=== PATIENT | male | born 1945 | race Caucasian/White ===

== ENCOUNTER → 2019-04-07 | Day surgery (SDC) | payer MEDICARE ==
[2019-04-06 09:37] VITALS: BMI 21.7
[~2019-04-07] MED LIST: ALPRAZolam 0.25 MG TAB PO PRN; ALPRAZolam 0.5 MG TAB PO PRN; ASPIRIN 325 MG TAB PO STA; HEPARIN SODIUM 1,000 UN/ML (10ML VL) ONE; IOPAMIDOL-370 125ML BTL INJ ONE; LIDOCAINE 1% INJ 10MG/ML (20 ML MDV) ONE; MIDAZOLAM (PF) 2 MG/2 ML VIAL IV ONE; NICOTINE 14MG/24HR PATCH TRANSDERM STA; NITROGLYCERIN SL TABS 0.4 MG TAB SUBLINGUAL PRN; RX INFO: IV CONTRAST WAS GIVEN 1 EACH MISC MISCELLANE PRN; SODIUM CHLORIDE 0.9% 1,000 ML IV SCH; SODIUM CHLORIDE 0.9% 1,000 ML in EMPTY BAG 1 BAG IV ONE; VERAPAMIL 2.5 MG/ML 2 ML AMP ONE; VERAPAMIL SYRINGE (5 MG/10 ML) INTRAARTER ONE; cloNIDine HCL 0.1 MG TAB PO STA; fentaNYL (PF) 50 MCG/ML 2 ML AMP IV ONE; fentaNYL (PF) 50 MCG/ML 2 ML AMP ONE
[2019-04-07 11:04] VITALS: RESP 18; TEMP 98
[2019-04-07 11:14] LABS: Basophils % (A) 1 %; Eosinophils # (A) 0.1 k/uL (0-0.7); Eosinophils % (A) 2 %; HCT 44.4 % (39.0-53.0); HGB 15.3 gm/dL (13.0-17.5); Lymphocytes # (A) 1.3 k/uL (1.0-4.8); Lymphocytes % (A) 15 %; MCH 32.5 pg (25.0-35.0); MCHC 34.5 g/dL (31.0-37.0); MCV 94.1 fL (80.0-100.0); Mean Platelet Volume 7.2; Monocytes # (A) 0.4 k/uL (0-1.0); Monocytes % (A) 4 %; Neutrophils # (A) 6.7 k/uL (1.3-7.7); Neutrophils % (A) 77 %; Platelet Count 245 k/uL (150-450); RBC 4.72 m/uL (4.30-5.90); RDW 13.1 % (11.5-15.5); WBC 8.7 k/uL (3.8-10.6)
[2019-04-07 11:20] LABS: Anion Gap 6 mmol/L; Blood Urea Nitrogen 7 mg/dL (9-20); Calcium 9.8 mg/dL (8.4-10.2); Carbon Dioxide 29 mmol/L (22-30); Chloride 100 mmol/L (98-107); Glucose 90 mg/dL (74-99); Potassium 4.5 mmol/L (3.5-5.1); Sodium 135 mmol/L (137-145)
[2019-04-07] MEDS: MIDAZOLAM (PF) 2 MG/2 ML VIAL IV ONE ×2 (12:31→12:37)
[2019-04-07] MEDS: fentaNYL (PF) 50 MCG/ML 2 ML AMP IV ONE ×2 (12:31→12:37)
--- NOTE | 2019-04-07 13:09 | CC ---
CARDIAC CATHETERIZATION REPORT DATE OF SERVICE: 04/07/2019 PERFORMING PHYSICIAN: Brady Mills MD, Cardiac Technician. PROCEDURE PERFORMED: 1. Selective right and left coronary angiogram. 2. Left heart catheterization. INDICATION: This is a pleasant 71-year-old gentleman with history of hypertension and dyslipidemia who was experiencing exertional dyspnea and underwent myocardial perfusion imaging stress test and that revealed apical ischemia. Because of that, heart catheterization was advised. APPROACH: Right radial artery. COMPLICATION: None. LEVEL OF SEDATION: Moderate with sedation length of 15 minutes. PROCEDURE DESCRIPTION: After obtaining an informed consent, the patient was brought to the cardiac skilled labor. The right radial artery was cannulated using micropuncture technique, the micropuncture wire passed easily then I placed a 6-Maltese sheath in the right radial artery. After that, I gave the patient 2 mg of verapamil IA and units of heparin IV. Subsequently I did selective right and left coronary angiogram using JR4 and JL3.5 catheters. Left heart catheterization was performed using 6-Maltese pigtail catheter. The procedure was completed without any complication. SELECTIVE CORONARY ANGIOGRAM: 1. The right coronary artery is a large caliber vessel and it is a dominant vessel. The proximal RCA appeared to be angiographically normal. The mid RCA has mild disease only. The RCA distally appeared to be angiographically normal. 2. The left main is angiographically normal. It bifurcates into left circumflex, ramus intermedius, and left anterior descending artery. 3. The left circumflex is a large caliber vessel. It is a nondominant vessel. The proximal circumflex appeared to be normal. The mid circumflex is normal and gives rise into first and second obtuse marginal branches both appeared to be angiographically normal and the circumflex continued after that as a moderate caliber vessel in the AV groove. 4. The ramus intermedius is a small to medium caliber vessel and seems to be normal. 5. The LAD, the proximal LAD appeared to have mild disease only. It gives rise into the first diagonal branch which seems to be normal. The mid and distal LAD appeared to be normal. HEMODYNAMICS: The left ventricular end-diastolic pressure was 12 mmHg without significant gradient across the aortic valve. CONCLUSION: 1. Mild nonobstructive coronary artery disease. POSTPROCEDURE MANAGEMENT: 1. Medical treatment. 2. Follow up with the patient. 3. Aggressive cholesterol control. MMODL / IJN: [id number] /
[2019-04-07 16:09] VITALS: BP 161/86; PULSE 65
--- NOTE | 2019-04-07 18:03 | LTR ---
April 07, 2019 To: Dr. Irvin Soto Re: Jesse Vicente ([id number]) Dear Dr. Soto, Mr. Jesse Vicente underwent today a heart catheterization which revealed mild nonobstructive coronary artery disease. I advised maximized medical treatment, including aggressive cholesterol control and blood pressure control. Thank you for allowing us to participate in her care. Please do not hesitate to call if you have any question or concerns. Sincerely, MD ORTIZ Moyer / AQUILINON: [id number] /
== END ==
LOC: CATHCVL 10:15
PROVIDERS: ATTEND Internal Medicine Interventional Cardiology
DX: I25.110 Atherosclerotic heart disease of native coronary artery with unstable angina pectoris (principal); I10 Essential (primary) hypertension; I49.3 Ventricular premature depolarization; F17.200 Nicotine dependence, unspecified, uncomplicated; Z82.49 Family history of ischemic heart disease and other diseases of the circulatory system; Z79.899 Other long term (current) drug therapy
CPT/HCPCS: 93458; 80048; 85025; C1769; C1894; S4990; J3010; J1644; Q9967; J2250

== ENCOUNTER → 2024-09-12 | Day surgery (SDC) | payer MEDICARE ==
[2024-09-08 09:34] VITALS: BMI 23.7
[~2024-09-12] MED LIST changes: -ALPRAZolam 0.25 MG TAB PO PRN; -ALPRAZolam 0.5 MG TAB PO PRN; -ASPIRIN 325 MG TAB PO STA; -HEPARIN SODIUM 1,000 UN/ML (10ML VL) ONE; -IOPAMIDOL-370 125ML BTL INJ ONE; -MIDAZOLAM (PF) 2 MG/2 ML VIAL IV ONE; -NICOTINE 14MG/24HR PATCH TRANSDERM STA; -NITROGLYCERIN SL TABS 0.4 MG TAB SUBLINGUAL PRN; +PROPOFOL 10 MG/ML 20 ML VIAL IV ONE; -RX INFO: IV CONTRAST WAS GIVEN 1 EACH MISC MISCELLANE PRN; -SODIUM CHLORIDE 0.9% 1,000 ML IV SCH; -SODIUM CHLORIDE 0.9% 1,000 ML in EMPTY BAG 1 BAG IV ONE; +SODIUM CHLORIDE 0.9% 500 ML 500 ML IV SCH; -VERAPAMIL 2.5 MG/ML 2 ML AMP ONE; -VERAPAMIL SYRINGE (5 MG/10 ML) INTRAARTER ONE; -cloNIDine HCL 0.1 MG TAB PO STA; -fentaNYL (PF) 50 MCG/ML 2 ML AMP IV ONE; -fentaNYL (PF) 50 MCG/ML 2 ML AMP ONE
[2024-09-12] MEDS: IV FLUID CONTINUATION 500 ML IV ONE (06:41)
[2024-09-12 06:54] VITALS: TEMP 97.5
[2024-09-12 07:36] LABS: African American GFR (CKD) >90 (>60 ml/min/1.73 sqM); Anion Gap 5 mmol/L; Blood Urea Nitrogen 15 mg/dL (9-20); Calcium 9.9 mg/dL (8.4-10.2); Carbon Dioxide 31 mmol/L (22-30); Chloride 102 mmol/L (98-107); Glucose 82 mg/dL (74-99); Non-African American GFR(CKD) >90 (>60 ml/min/1.73 sqM); Potassium 4.5 mmol/L (3.5-5.1); Sodium 138 mmol/L (137-145)
[2024-09-12] MEDS: IV FLUID CONTINUATION 1,000 ML IV ONE (07:37)
[2024-09-12 09:03] VITALS: BP 151/82; PULSE 52; RESP 14
--- NOTE | 2024-09-12 09:29 | ECHOT ---
TRANSESOPHAGEAL ECHOCARDIOGRAM INDICATION: To rule out intracardiac thrombus prior to cardioversion. PROCEDURE NOTE: After obtaining informed consent, transesophageal echocardiogram was performed in left lateral position using an Omniplane probe. Local and IV sedation were obtained by the cloth finishing range back tender. The patient tolerated the procedure well without any obvious immediate complications. FINDINGS: 1. There is no intracardiac thrombus within the left atrial appendage, left atrium, right atrium, right ventricle, or left ventricle. 2. Left ventricle appears mildly enlarged, shows diffuse global hypokinesis with mild LV systolic dysfunction with an ejection fraction of 45%. There is mild to moderate central mitral regurgitation noted. Aortic valve is free of stenosis or regurgitation. 3. Aortic root measures within normal limits. Tricuspid valve shows mild tricuspid regurgitation. There is no evidence of [id number] shunt by color-flow Doppler or [id number] shunt by agitated saline contrast study. CONCLUSIONS: 1. No intracardiac thrombus. 2. Mild LV dysfunction. 3. Mild to moderate mitral regurgitation. PLAN: The patient will proceed with cardioversion. MMODL / IJN: [id number] /
--- NOTE | 2024-09-12 12:47 | PCN ---
PROCEDURE NOTE PROCEDURE: Cardioversion. INDICATION: Persistent atrial fibrillation. PROCEDURE NOTE: After obtaining informed consent, electrical cardioversion was performed using 120 joules of synchronized DC current. The patient converted to sinus rhythm following a single shock. The patient is adequately anticoagulated with Eliquis and thrombus was ruled out for STEPHANIE. He will continue with the Eliquis and we will decrease the dose of metoprolol on discharge. MMMIGUELITO / AQUILINON: [id number] /
== END ==
LOC: OR 06:15
PROVIDERS: ATTEND Internal Medicine Cardiovascular Disease
CPT/HCPCS: 80048; 92960; 93312; 93320; 93325

== ENCOUNTER 2025-02-07 09:31 | Inpatient (IN) | payer MEDICARE ==
--- NOTE | 2025-02-07 10:10 | ED ---
General Adult HPI - General Chief complaint: Extremity Injury, Lower Stated complaint: R Hip fracture Time Seen by Provider: 02/07/25 09:45 Source: patient, EMS, RN notes reviewed, old records reviewed Mode of arrival: EMS Limitations: no limitations - History of Present Illness Initial comments: This is a 79-year-old male who presents to the emergency department from [facility] where he was diagnosed with a right hip fracture. Patient states he got up this morning and put his flip-flops on and tripped and fell and broke his hip. Patient denies any other complaints at this time. Patient denies any his head or neck. Patient denies any numbness weakness. Patient denies any other problems. - Related Data Home Medications Medication Instructions Recorded Confirmed Apixaban [Eliquis] 5 mg PO BID 09/08/24 09/08/24 Atorvastatin [Lipitor] 20 mg PO QAM 09/08/24 09/08/24 FLUoxetine HCL 20 mg PO QAM 09/08/24 09/08/24 Metoprolol Tartrate [Lopressor] 50 mg PO BID 09/08/24 09/08/24 lisinopriL [Zestril] 10 mg PO QAM 09/08/24 09/08/24 Allergies Allergy/AdvReac Type Severity Reaction Status Date / Time injection from stress test AdvReac Nausea & Uncoded 09/08/24 09:15 Vomiting Review of Systems ROS Statement: Those systems with pertinent positive or pertinent negative responses have been documented in the HPI. ROS Other: All systems not noted in ROS Statement are negative. Past Medical History Past Medical History: CVA/TIA, Hearing Disorder / Deafness, Hypertension Additional Past Medical History / Comment(s): Hard of hearing left ear. History of Any Multi-Drug Resistant Organisms: None Reported Past Surgical History: Back Surgery, Heart Catheterization Past Anesthesia/Blood Transfusion Reactions: No Reported Reaction Past Psychological History: Anxiety, Depression Smoking Status: Current every day smoker - Past Family History Sister(s) Family Medical History: Cancer General Exam - General Exam Comments Initial Comments: GENERAL: Patient is well-developed and well-nourished. Patient is nontoxic and well- hydrated and is in mild distress. ENT: Neck is soft and supple. No significant lymphadenopathy is noted. Oropharynx is clear. Moist mucous membranes. Neck has full range of motion without eliciting any pain. EYES: The sclera were anicteric and conjunctiva were pink and moist. Extraocular movements were intact and pupils were equal round and reactive to light. Eyelids were unremarkable. PULMONARY: Unlabored respirations. Good breath sounds bilaterally. No audible rales rhonchi or wheezing was noted. CARDIOVASCULAR: There is a regular rate and rhythm without any murmurs gallops or rubs. ABDOMEN: Soft and nontender with normal bowel sounds. No palpable organomegaly was noted. There is no palpable pulsatile mass. SKIN: Skin is clear with no lesions or rashes and otherwise unremarkable. NEUROLOGIC: Patient is alert and oriented x3. Cranial nerves II through XII are grossly intact. Motor and sensory are also intact. Normal speech, volume and content. Symmetrical smile. MUSCULOSKELETAL: Patient's right leg is externally rotated and painful with any motion LYMPHATICS: No significant lymphadenopathy is noted PSYCHIATRIC: Normal psychiatric evaluation. Limitations: no limitations Course Vital Signs 02/07/25 09:38 Temperature 98.6 F Pulse Rate 54 L Respiratory 16 Rate Blood Pressure 163/80 O2 Sat by Pulse 98 Oximetry Medical Decision Making - Medical Decision Making EKG is interpreted by myself but EKG shows sinus bradycardia 56 bpm FL was 225 QRS is 153 QT interval 470 QTc is 460. Patient EKG shows a right bundle branch block. Was pt. sent in by a medical professional or institution ([facility], [facility], urgent care, hospital, or fpc...) When possible be specific @ -No Did you speak to anyone other than the patient for history (EMS, parent, family, police, friend...)? What history was obtained from this source @ -No Did you review nursing and triage notes (agree or disagree)? Why? @ -I reviewed and agree with nursing and triage notes Were old charts reviewed (outside hosp., previous admission, EMS record, old EKG, old radiological studies, urgent care reports/EKG's, fpc records)? Report findings @ -No old charts were reviewed Differential Diagnosis? @ -Differential Musculoskeletal Muscular strain, contusion, ligament sprain, fracture, arthritis, septic arthritis, bursitis, cellulitis, muscle spasm, nerve compression, DVT, arterial occlusion, herpes zoster, electrolyte abnormality, tumor.... This is not meant to be in all inclusive list EKG interpreted by me (3pts min.). @ -As above X-rays interpreted by me (1pt min.). @ -None done CT interpreted by me (1pt min.). @ -None done U/S interpreted by me (1pt. min.). @ -None done What testing was considered but not performed or refused? (CT, X-rays, U/S, labs)? Why? @ -None What meds were considered but not given or refused? Why? @ -None Did you discuss the management of the patient with other professionals (professionals i.e. , PA, [facility], lab, RT, psych nurse, aids social worker, core composer feeder, teacher, staff weapons officer, case management social worker)? Give summary @ -I spoke with Dr. Gil he agreed to admit the patient Was smoking cessation discussed for >3mins.? @ -No Was critical care preformed (if so, how long)? @ -No Were there social determinants of health that impacted care today? How? (Homelessness, low income, unemployed, alcoholism, drug addiction, transportation, low edu. Level, literacy, decrease access to med. care, long term, rehab)? @ -No Was there de-escalation of care discussed even if they declined (Discuss DNR or withdrawal of care, Hospice)? DNR status @ -No What co-morbidities impacted this encounter? (DM, HTN, Smoking, COPD, CAD, Cancer, CVA, ARF, Chemo, Hep., AIDS, mental health diagnosis, sleep apnea, morbid obesity)? @ -None Was patient admitted / discharged? Hospital course, mention meds given and route, prescriptions, significant lab abnormalities, going to OR and other pertinent info. @ -Patient came with lab work I did do an EKG. Patient's x-rays were reviewed by myself as an intertrochanteric left hip fracture spoke with Ortho they agreed to admit the patient. I admitted the patient and I consulted [facility] for clearance Undiagnosed new problem with uncertain prognosis? @ -No Drug Therapy requiring intensive monitoring for toxicity (Heparin, Nitro, Insulin, Cardizem)? @ -No Were any procedures done? @ -No Diagnosis/symptom? @ -Right intertrochanteric hip fracture Acute, or Chronic, or Acute on Chronic? @ -Acute Uncomplicated (without systemic symptoms) or Complicated (systemic symptoms)? @ -Complicated Side effects of treatment? @ -No Exacerbation, Progression, or Severe Exacerbation? @ -No Poses a threat to life or bodily function? How? (Chest pain, [place], [place], pneumonia, PE, COPD, DKA, ARF, appy, cholecystitis, CVA, Diverticulitis, Homicidal, Suicidal, threat to staff... and all critical care pts) @ -No Disposition Clinical Impression: Intertrochanteric fracture of right hip Disposition: ADMITTED IP TO THIS [facility] Referrals: Emery Hurley MD [Primary Care Provider] - 1-2 days Time of Disposition: 11:08
[2025-02-07] MEDS: HYDROmorphone 0.5 MG/0.5 ML SYRINGE IVP STA (11:20)
[2025-02-07] MEDS: SODIUM CHLORIDE 0.9% 1,000 ML IV ONE (11:27)
[2025-02-07] MEDS: HYDROmorphone 0.5 MG/0.5 ML SYRINGE IVP PRN (12:20)
[2025-02-07] MEDS ORDERED: ACETAMINOPHEN TAB 325 MG TAB PO PRN (14:50)
[2025-02-07] MEDS ORDERED: NA PHOS,M-B/NA PHOS,DI-BA 133 ML ENEMA RECTAL PRN (14:50)
[2025-02-07] MEDS ORDERED: MAGNESIUM HYDROXIDE 2,400 MG/30 ML CUP PO PRN (14:50)
[2025-02-07] MEDS ORDERED: traMADol 50 MG TAB PO PRN (14:50)
[2025-02-07] MEDS ORDERED: bisacodyL 10 MG SUPP RECTAL PRN (14:50)
[2025-02-07] MEDS ORDERED: HYDROcodone/APAP 5-325MG 1 EACH TAB PO PRN (14:50)
[2025-02-07] MEDS ORDERED: HYDROmorphone 0.5 MG/0.5 ML SYRINGE IVP PRN ×2 (14:50)
[2025-02-07] MEDS ORDERED: NALOXONE 0.4 MG/ML 1 ML VIAL IV PRN (14:50)
[2025-02-07] MEDS: HYDROcodone/APAP 10-325MG 1 EACH TAB PO PRN (15:11)
[2025-02-07] MEDS ORDERED: LORazepam 1 MG/0.5 ML VIAL IV PRN ×2 (15:52)
[2025-02-07] MEDS: LORazepam 0.5 MG TAB PO PRN (16:15)
[2025-02-07] MEDS: LACTATED RINGERS 1,000 ML IV SCH (17:30)
--- NOTE | 2025-02-07 17:31 | XR ---
EXAMINATION TYPE: XR Hip Complete RT DATE OF EXAM: 02/07/2025 5:22 PM COMPARISON: None CLINICAL INDICATION: Male, 79 years old with history of right IT femur fracture; PHH, pain TECHNIQUE: XR Hip Complete RT; Frontal and lateral views FINDINGS/IMPRESSION: Proximal right femur intertrochanteric fracture with varus deformity and a rotational component. [facility], , 02/07/2025 5:29 PM
--- NOTE | 2025-02-07 17:34 | XR ---
EXAMINATION TYPE: XR chest 1V DATE OF EXAM: 02/07/2025 5:22 PM COMPARISON: Chest radiographs from CLINICAL INDICATION: Male, 79 years old with history of surgery clearance; TECHNIQUE: XR chest 1V Frontal view of the chest. FINDINGS: Lungs/Pleura: There is no evidence of pleural effusion, focal consolidation, or pneumothorax. Pulmonary vascularity: Unremarkable. Heart/mediastinum: Cardiomediastinal silhouette is unremarkable. Musculoskeletal: No acute osseous pathology. Other findings: None IMPRESSION: Mild pulmonary edema versus low lung volumes.. [facility], , 02/07/2025 5:32 PM
[2025-02-07] MEDS: SENNOSIDES-DOCUSATE SODIUM 1 EACH TAB PO SCH (22:13)
[2025-02-08] MEDS: PANTOPRAZOLE 40 MG TABLET PO SCH (08:15)
[2025-02-08] MEDS: FLUoxetine HCL 20 MG CAP PO SCH (08:15)
[2025-02-08] MEDS: ATORVASTATIN 20 MG TAB PO SCH (08:15)
[2025-02-08] MEDS: METOPROLOL TARTRATE 25 MG TAB PO SCH (08:15)
[2025-02-08] MEDS: MULTIVITAMINS, THERA 1 EACH TAB PO SCH (08:16)
[2025-02-08 10:13] LABS: HCT 34.1 % (39.6-50.0); HGB 11.7 g/dL (13.0-17.0); MCH 32.1 pg (27.0-32.0); MCHC 34.3 g/dL (32.0-37.0); MCV 93.7 FL (80.0-97.0); Mean Platelet Volume 11.8 FL (9.5-12.2); NRBC Per 100 WBC 0 X 10*3/uL (0.00-0.01); Platelet Count 190 X 10*3/uL (140-440); RBC 3.64 X 10*6/uL (4.40-5.60); RDW 13.2 % (11.5-14.5); WBC 13.25 X 10*3/uL (4.50-10.00)
[2025-02-08 10:46] LABS: Basophils # (A) 0.04 X 10*3/uL (0.00-0.10); Basophils % (A) 0.3 %; Eosinophils # (A) 0.01 X 10*3/uL (0.04-0.35); Eosinophils % (A) 0.1 %; Lymphocytes # (A) 1.69 X 10*3/uL (0.90-5.00); Lymphocytes % (A) 12.8 %; Monocytes # (A) 1.58 X 10*3/uL (0.20-1.00); Monocytes % (A) 11.9 %; Neutrophils # (A) 9.87 X 10*3/uL (1.80-7.70); Neutrophils % (A) 74.4 %; RBC Morphology Normal (Normal)
[2025-02-08] MEDS: hydrALAZINE HCL 20 MG/ML 1 ML VIAL IVP STA (10:46)
[2025-02-08] MEDS: LORazepam 1 MG/0.5 ML VIAL IV PRN (12:40)
--- NOTE | 2025-02-08 12:58 | P.CONS ---
History of Present Illness - Reason for Consult Consult date: 02/08/25 Medical management, status post fall with right hip fracture - History of Present Illness This is a 79-year-old male who presented to the emergency department from [facility] after a mechanical fall and noted to have a proximal right hip fracture. Patient follows with Dr. Hurley and sees the nurse practitioner Justina Vargas outpatient with past medical history of Atrial fibrillation, recent CVA, deafness, hypertension, anxiety with depression, continued ongoing nicotine dependence, daily drinking approximately 2-3 beers daily and fireball shots. Patient reports he fell and was unable to get up and his son lives with him and found him and called EMS for ER transport. Patient was at [facility] and sent here for further orthopedic evaluation. Patient is medically stable and given his age and comorbidities would deem him moderate risk although was ambulatory and independent prior to this and would proceed with surgical intervention. REVIEW OF SYSTEMS: CONSTITUTIONAL: No fever, no malaise, no fatigue. HEENT: No recent visual problems or hearing problems. Denied any sore throat. CARDIOVASCULAR: No chest pain, orthopnea, PND, no palpitations, no syncope. PULMONARY: No shortness of breath, no cough, no hemoptysis. GASTROINTESTINAL: No diarrhea, no nausea, no vomiting, no abdominal pain. NEUROLOGICAL: No headaches, no weakness, no numbness. HEMATOLOGICAL: Denies any bleeding or petechiae. GENITOURINARY: Denies any burning micturition, frequency, or urgency. MUSCULOSKELETAL/RHEUMATOLOGICAL: Right hip pain ENDOCRINE: Denies any polyuria or polydipsia. The rest of the 14-point review of systems is negative. PHYSICAL EXAMINATION: GENERAL: The patient is alert and oriented x3, not in any acute distress. Well developed, well nourished. HEENT: Pupils are round and equally reacting to light. EOMI. No scleral icterus. No conjunctival pallor. Normocephalic, atraumatic. No pharyngeal erythema. No thyromegaly. CARDIOVASCULAR: S1 and S2 muffled PULMONARY: Chest is clear to auscultation, no wheezing or crackles. ABDOMEN: Soft, nontender, nondistended, normoactive bowel sounds. No palpable organomegaly. MUSCULOSKELETAL: No joint swelling or deformity. EXTREMITIES: No cyanosis, clubbing, or pedal edema. Right hip externally rotated and shortened NEUROLOGICAL: Gross neurological examination did not reveal any focal deficits. Diffusely weak SKIN: No rashes. Assessment: Mechanical fall with right hip pain noted to have right proximal hip fracture History of atrial fibrillation History of recent CVA History of hypertension Continued ongoing nicotine abuse Daily EtOH abuse, family reports 2-3 beers daily and a fireball shot GI prophylaxis DVT prophylaxis Full code Plan: Patient is admitted under orthopedics with medicine on consult. Given patient's history of A-fib, recent CVA and hypertension with continued ongoing nicotine abuse and alcohol abuse, would deem the patient moderate risk for surgical intervention although somewhat noncompliant with medications and continued nicotine and alcohol. Risk versus benefits explained and patient is willing to proceed with surgical intervention as patient was independent and ambulatory prior to this Home medications reviewed and resumed as appropriate Thank you kindly for this consultation. We will continue to follow with orthopedics during hospitalization. The impression and plan of care has been dictated by Grecia Linares, Nurse Practitioner as directed. Dr. Kasey MD I have performed a history and examination and MDM of this patient, discussed the same with the dictator, and agree with the dictator's assessment and plan as written ,documented as a scribe. Based on total visit time, I have performed more than 50% of the visit. Past Medical History Past Medical History: Atrial Fibrillation, CVA/TIA, Hearing Disorder / Deafness, Hypertension Additional Past Medical History / Comment(s): Hard of hearing left ear. History of Any Multi-Drug Resistant Organisms: None Reported Past Surgical History: Back Surgery, Heart Catheterization Past Anesthesia/Blood Transfusion Reactions: No Reported Reaction Past Psychological History: Anxiety, Depression Smoking Status: Current every day smoker Past Alcohol Use History: Daily Additional Past Alcohol Use History / Comment(s): Smokes 1 pack every 2 days. 2- 3 beers daily and fireball Past Drug Use History: None Reported - Past Family History Sister(s) Family Medical History: Cancer Medications and Allergies Home Medications Medication Instructions Recorded Confirmed Type Atorvastatin [Lipitor] 20 mg PO DAILY 09/08/24 02/07/25 History FLUoxetine HCL 20 mg PO DAILY 09/08/24 02/07/25 History Aspirin EC [Ecotrin Low Dose] 81 mg PO DAILY 02/07/25 02/07/25 History Dabigatran [Pradaxa] 150 mg PO BID 02/07/25 02/07/25 History Metoprolol Tartrate [Lopressor] 25 mg PO BID 02/07/25 02/07/25 History Pantoprazole Sodium [Protonix] 40 mg PO DAILY 02/07/25 02/07/25 History lisinopriL [Zestril] 20 mg PO DAILY 02/07/25 02/07/25 History Allergies Allergy/AdvReac Type Severity Reaction Status Date / Time injection from stress test AdvReac Nausea & Uncoded 02/07/25 11:52 Vomiting Physical Exam Vitals: Vital Signs Temp Pulse Pulse Resp BP BP Pulse Ox 02/08/25 07:28 98.4 F 69 18 193/85 96 02/08/25 01:34 98.4 F 73 20 178/81 95 02/07/25 18:53 98.3 F 76 20 179/76 97 02/07/25 15:07 98.4 F 64 18 196/82 97 02/07/25 14:31 59 L 18 180/81 98 02/07/25 13:30 99.3 F 67 20 171/90 96 02/07/25 12:22 59 L 18 164/79 96 Intake and Output 02/07/25 02/08/25 02/08/25 22:59 06:59 14:59 Intake Total 200 Output Total 300 450 Balance -100 -450 Intake: Oral 200 Output: Urine 300 450 Other: Voiding Method Indwelling Catheter # Voids 1 Results CBC & Chem 7: 02/08/25 07:35 Labs: Abnormal Lab Results - Last 24 Hours (Table) 02/08/25 Range/Units 07:35 WBC 13.25 H (4.50-10.00) X 10*3/uL RBC 3.64 L (4.40-5.60) X 10*6/uL Hgb 11.7 L (13.0-17.0) g/dL Hct 34.1 L (39.6-50.0) % MCH 32.1 H (27.0-32.0) pg
--- NOTE | 2025-02-08 15:49 | P.HPOR ---
History of Present Illness H&P Date: 02/08/25 Chief Complaint: Right hip Fracture Patient is a 79-year-old male seen at bedside today. He was admitted through the ED yesterday for a right hip fracture. He was transferred from [facility] where he was diagnosed with a right hip fracture. Patient states he got up yesterday morning and put his flip-flops on and tripped and fell and broke his hip. Patient denies any other complaints at this time. Patient denies injury to his head or neck. Patient denies any numbness weakness. Patient denies any other problems. Review of Systems All systems: negative Constitutional: Denies chills, Denies fever Eyes: denies blurred vision, denies pain Ears, nose, mouth and throat: Denies headache, Denies sore throat Cardiovascular: Denies chest pain, Denies shortness of breath Respiratory: Denies cough Gastrointestinal: Denies abdominal pain, Denies diarrhea, Denies nausea, Denies vomiting Musculoskeletal: Denies myalgias Integumentary: Denies pruritus, Denies rash Neurological: Denies numbness, Denies weakness Psychiatric: Denies anxiety, Denies depression Endocrine: Denies fatigue, Denies weight change Past Medical History Past Medical History: Atrial Fibrillation, CVA/TIA, Hearing Disorder / Deafness, Hypertension Additional Past Medical History / Comment(s): Hard of hearing left ear. History of Any Multi-Drug Resistant Organisms: None Reported Past Surgical History: Back Surgery, Heart Catheterization Past Anesthesia/Blood Transfusion Reactions: No Reported Reaction Past Psychological History: Anxiety, Depression Smoking Status: Current every day smoker Past Alcohol Use History: Daily Additional Past Alcohol Use History / Comment(s): Smokes 1 pack every 2 days. 2- 3 beers daily and fireball Past Drug Use History: None Reported - Past Family History Sister(s) Family Medical History: Cancer Medications and Allergies Home Medications Medication Instructions Recorded Confirmed Type Atorvastatin [Lipitor] 20 mg PO DAILY 09/08/24 02/07/25 History FLUoxetine HCL 20 mg PO DAILY 09/08/24 02/07/25 History Aspirin EC [Ecotrin Low Dose] 81 mg PO DAILY 02/07/25 02/07/25 History Dabigatran [Pradaxa] 150 mg PO BID 02/07/25 02/07/25 History Metoprolol Tartrate [Lopressor] 25 mg PO BID 02/07/25 02/07/25 History Pantoprazole Sodium [Protonix] 40 mg PO DAILY 02/07/25 02/07/25 History lisinopriL [Zestril] 20 mg PO DAILY 02/07/25 02/07/25 History Allergies Allergy/AdvReac Type Severity Reaction Status Date / Time injection from stress test AdvReac Nausea & Uncoded 02/07/25 11:52 Vomiting Physical Examination Inspection of the lower extremities shows a shortened externally rotated right lower extremity. There are no wounds, erythema or ecchymoses. The knee is nontender without effusion. She has painless range of motion of the knee, ankle foot and toes. Range of motion of the right hip is not tested due to fracture. Neurovascular status is intact throughout the lower extremity with motor and sensation fully intact. Calf is soft and nontender. 2+ dorsalis pedis pulse a nd less than 2 second cap refill is present. Results Right IT femur fracture - Labs Labs: Abnormal Lab Results - Last 24 Hours (Table) 02/08/25 Range/Units 07:35 WBC 13.25 H (4.50-10.00) X 10*3/uL RBC 3.64 L (4.40-5.60) X 10*6/uL Hgb 11.7 L (13.0-17.0) g/dL Hct 34.1 L (39.6-50.0) % MCH 32.1 H (27.0-32.0) pg Immature Gran # 0.06 H (0.00-0.04) X 10*3/uL Neutrophils # 9.87 H (1.80-7.70) X 10*3/uL Monocytes # 1.58 H (0.20-1.00) X 10*3/uL Eosinophils # 0.01 L (0.04-0.35) X 10*3/uL H & H 02/08/25 Range/Units 07:35 Hgb 11.7 L (13.0-17.0) g/dL Hct 34.1 L (39.6-50.0) % Result Diagrams: 02/08/25 07:35 Assessment and Plan (1) Intertrochanteric fracture of right hip Narrative/Plan: Plan is to proceed with surgical intervention including Gamma Nail-IM hip screw for his right IT femur fracture tomorrow morning. He is NPO after MN. Procedure is boarded. Continue pain management, medical management, DVT prophylaxis. He would benefit from placement post op. Current Visit: Yes Status: Acute Priority: Medium Code(s): S72.141A - DISPLACED INTERTROCHANTERIC FRACTURE OF RIGHT FEMUR, INIT SNOMED Code(s): 201864530 Time with Patient: Less than 30
[2025-02-08] MEDS: hydrALAZINE HCL 20 MG/ML 1 ML VIAL IVP PRN (21:01)
[2025-02-09 08:48] LABS: ALT 14 U/L (10-49); AST 35 U/L (14-35); Albumin 3.7 g/dL (3.8-4.9); Albumin/Globulin Ratio 1.85 Ratio (1.60-3.17); Alkaline Phosphatase 73 U/L (41-126); Blood Urea Nitrogen 14.3 mg/dL (9.0-27.0); Calcium 9.4 mg/dL (8.7-10.3); Carbon Dioxide 21.2 mmol/L (21.6-31.8); Chloride 104 mmol/L (96-109); Glucose 102 mg/dL (70-110); Magnesium 1.7 mg/dL (1.5-2.4); Potassium 3.6 mmol/L (3.5-5.5); Sodium 138 mmol/L (135-145); Total Bilirubin 1.4 mg/dL (0.3-1.2); Total Protein 5.7 g/dL (6.2-8.2)
[2025-02-09] MEDS ORDERED: TRANEXAMIC 1,000 MG/100ML-NACL 1,000 MG in SALINE 1 100ML.BAG IVPB PRN (09:03)
[2025-02-09] MEDS: IV FLUID CONTINUATION 1,000 ML IV ONE ×2 (09:05→12:04)
[2025-02-09 09:12] LABS: Basophils # (A) 0.05 X 10*3/uL (0.00-0.10); Basophils % (A) 0.3 %; Eosinophils # (A) 0.05 X 10*3/uL (0.04-0.35); Eosinophils % (A) 0.3 %; HCT 35.8 % (39.6-50.0); HGB 11.9 g/dL (13.0-17.0); Lymphocytes # (A) 1.63 X 10*3/uL (0.90-5.00); Lymphocytes % (A) 8.8 %; MCH 31.4 pg (27.0-32.0); MCHC 33.2 g/dL (32.0-37.0); MCV 94.5 FL (80.0-97.0); Mean Platelet Volume 12.4 FL (9.5-12.2); Monocytes # (A) 2.29 X 10*3/uL (0.20-1.00); Monocytes % (A) 12.4 %; NRBC Per 100 WBC 0 X 10*3/uL (0.00-0.01); Neutrophils # (A) 14.37 X 10*3/uL (1.80-7.70); Neutrophils % (A) 77.5 %; Platelet Count 209 X 10*3/uL (140-440); RBC 3.79 X 10*6/uL (4.40-5.60); RDW 13.3 % (11.5-14.5); WBC 18.52 X 10*3/uL (4.50-10.00)
[2025-02-09] MEDS: ONDANSETRON 4 MG/2 ML VIAL IVP PRN (09:23)
[2025-02-09] MEDS ORDERED: PROPOFOL 10 MG/ML 20 ML VIAL IV ONE (09:47)
[2025-02-09] MEDS ORDERED: TRANEXAMIC 1,000 MG/100ML-NACL PREMIX BAG ONE (09:47)
[2025-02-09] MEDS ORDERED: PHENYLEPHRINE-0.9% NACL SYG 1,000 MCG/10 ML SYRINGE ONE (09:47)
[2025-02-09] MEDS ORDERED: LIDOCAINE 1% INJ 10MG/ML (20 ML MDV) ONE (09:47)
[2025-02-09] MEDS ORDERED: GLYCOPYRROLATE 0.2 MG/ML 2 ML VIAL ONE (09:47)
[2025-02-09] MEDS ORDERED: SUCCINYLCHOLINE CHLORIDE 200 MG/10 ML VIAL IV ONE (09:47)
[2025-02-09] MEDS ORDERED: ROCURONIUM 10 MG/ML (5 ML VIAL) IV ONE (09:47)
[2025-02-09] MEDS ORDERED: ePHEDrine 50 MG/ML 1 ML VIAL ONE (09:47)
[2025-02-09] MEDS ORDERED: MIDAZOLAM 2 MG/2 ML VIAL ONE (09:47)
[2025-02-09] MEDS ORDERED: NEOSTIGMINE 1 MG/ML 10 ML VIAL ONE (09:47)
[2025-02-09] MEDS ORDERED: fentaNYL (PF) 50 MCG/ML 2 ML AMP ONE (09:47)
[2025-02-09] MEDS ORDERED: QUEtiapine 25 MG TAB PO PRN (10:12)
[2025-02-09] MEDS: LACTATED RINGERS 1,000 ML IV ONE (10:51)
--- NOTE | 2025-02-09 11:14 | FL ---
EXAMINATION TYPE: FL guidance operating room, XR Hip Complete RT DATE OF EXAM: 02/09/2025 11:04 AM COMPARISON: Pre Operative Images if available both CT/MRI or plain film CLINICAL INDICATION: Male, 79 years old with history of IT Nail-Rt Hip; TECHNIQUE: FL guidance operating room, XR Hip Complete RT, multiple fluoroscopic images provided for procedure. DAP: 9.1560 mGym2 Gycm2 uGym2 cGycm2 or equivalent. FINDINGS: Fluoroscopic images during internal fixation demonstrate hardware in appropriate position. Hardware a ppears intact. No immediate complication identified. IMPRESSION: 1. No evidence for intraoperative complication. 2. Please see the operative/procedural note for further details. [facility], , 02/09/2025 11:11 AM
--- NOTE | 2025-02-09 12:12 | OP ---
OPERATIVE REPORT DATE OF SERVICE : 02/09/2025 PREOPERATIVE DIAGNOSIS: Right displaced intertrochanteric hip fracture. POSTOPERATIVE DIAGNOSIS: Right displaced intertrochanteric hip fracture. PROCEDURE PERFORMED: Right intramedullary hip screw fixation for right intertrochanteric hip fracture. ANESTHESIA: General endotracheal. ESTIMATED BLOOD LOSS: 50 mL. TOURNIQUET: None. DRAINS: None. COMPLICATIONS: None apparent. DISPOSITION: Postanesthesia care unit. INDICATIONS: Jesse is a very pleasant 79-year-old gentleman, who slipped on the stairs at home, injuring his right hip. He was first seen in [facility] ER and then was transferred to [facility] with a right intertrochanteric hip fracture. He is admitted to my service. The Internal Medicine Service saw him and cleared him for surgery. He is an independent ambulator at home. Recommendation was for an intramedullary hip screw fixation for his intertrochanteric hip fracture. The risks of procedure were discussed with him in detail. These risks included, but were not limited to risk of infection, nerve damage, bleeding, pain, failure of the fracture to heal and failure of the fixation. There was also a small risk of deep vein thrombosis, which could lead to fatal pulmonary embolism. All of his questions with regard to the risks of procedure were answered to his satisfaction. An appropriate informed consent was obtained. DESCRIPTION OF PROCEDURE: The patient was identified in the preoperative holding area. The surgical site was marked by both the patient and myself. He was then given 2 g of Ancef IV for prophylactic purposes. He was then transported to the operative suite. He was placed supine on the operating room table. General anesthetic was administered and dosed per the Anesthesia Department without apparent complication. The patient was then placed onto the fracture table, well-padded in preparation for surgery. Fluoroscopy was brought in. The fracture was reduced with traction and rotation. When I was happy with the reduction, we proceeded. The surgical site was then prepped and draped in usual sterile fashion. Standard surgical pause was undertaken to ensure that we were operating the correct site and that appropriate preoperative antibiotics had been given. All staff in room were in agreement, and we proceeded. Fluoroscopy was brought in. The tip of the greater trochanter was identified. An approximate 3 cm incision starting at the tip of the greater trochanter and extending proximally in line with the shaft of the femur was then made with a 10-blade scalpel. Dissection was carried down sharply to the tensor fascia. The tensor fascia was then incised in line with the incision. The curved awl was then utilized to find the appropriate starting point for the threaded guide pin. This was just on the medial aspect of the greater trochanter. The threaded pin was then advanced down the center of the femoral shaft. Again, this placement was confirmed with fluoroscopic imaging. I then used a starting reamer to gain access to the proximal femur. The starting reamer was advanced under fluoroscopic guidance just to the superior aspect of the lesser trochanter. The threaded guide pin was removed. The ball-tipped guidewire was then advanced down to the center of the femur. Again intramedullary placement was confirmed with fluoroscopic imaging. I then proceeded to ream the femoral shaft starting with a 9 mm reamer and incrementally increasing up to a 12.5 mm reamer to except the gamma nail. I then had the [employer] hospital sales representative open an 11 mm x 170 mm x 125 degree gamma nail. This was placed on the portfolio assistant on the back table. The holes were checked to ensure that it was appropriately placed on the portfolio assistant. The gamma nail was then inserted over the ball-tipped guidewire. It was then advanced down the shaft of the femur. The ball-tipped guidewire was removed. Appropriate placement was confirmed with fluoroscopic imaging. I then proceeded with placement of the lag screw. A second small incision was made on the lateral thigh. The guide was then placed flush against the lateral cortex of the femur. The threaded guide pin was then advanced through the guide, through the nail, and into the center of the femoral head. Again, this was confirmed with fluoroscopic imaging. The tip-apex distance was appropriate. I then measured for length, it measured to 105 mm. The drill was then set to 105 mm. The threaded guide pin was then over-drilled under fluoroscopic imaging to 105 mm, which was the appropriate length. I then had the hospital sales representative open a 105 mm partially-threaded cannulated lag screw. This was then inserted over the threaded guide pin through the nail and deep into the center of the femoral head on both AP and lateral views. The tip-apex distance was appropriate. Bone quality was very good and the bite with the screw was also very good. The set screw was then tightened down fully and then backed off 1/4 turn to allow for compression at the fracture site. The hotel assistant general manager released the traction. The fracture was compressed as much as possible. I then proceeded to place the distal locking screw. A third small stab incision was made on the lateral thigh. The drill guide was then advanced flush with the lateral cortex of the femur. It was drilled appropriately. It measured 37.5 mm. A 37.5 mm x 5 mm distal screw was placed through the static aspect of the distal hole in the nail. Its placement was confirmed with fluoroscopic imaging. I then proceeded with final imaging. The lag screw was in the center of the femoral head on both AP and lateral views. The tip-apex distance was appropriate. The nail was placed intramedullary. The fracture was compressed as much as possible. The distal locking screw was through the nail and was of appropriate length. The inserting guide was then removed. All wounds were then thoroughly irrigated with sterile saline solution with antibiotic added. The tensor fascia was closed with 0 Vicryl interrupted suture. The subcutaneous tissue closed with 2-0 Vicryl interrupted suture and the skin was closed with stainless steel kilo. Sterile dressings were applied. All sponge and needle counts were deemed correct prior to closure. The patient tolerated the procedure without apparent complication. He was transferred to recovery room in stable condition. MMODL / IJN: [id number] /
--- NOTE | 2025-02-09 16:50 | CT ---
EXAMINATION TYPE: CT brain wo con DATE OF EXAM: 02/09/2025 COMPARISON: NONE CLINICAL INDICATION: Male, 79 years old with history of confusion, confusion post sx TECHNIQUE: CT scan of the head is performed without contrast. CT DLP: 1261.4 mGycm. Automated Exposure Control for Dose Reduction was Utilized. FINDINGS: There is no acute intracranial hemorrhage or midline shift identified. There is moderate diffuse ventricular and sulcal prominence consistent with diffuse age-related cerebral atrophy. Ther e is moderate low-attenuation in the deep and periventricular white matter most likely consistent wit h chronic small vessel ischemic change in patient of this age. At least partially empty sella is seen . Soft tissue density consistent with cerumen is seen in the right external auditory canal. The globe s are intact and the visualized sinuses are clear. IMPRESSION: No acute intracranial hemorrhage or midline shift. There is moderate diffuse age-relate d cerebral atrophy and probable chronic small vessel ischemic change noted. [facility], , 02/09/2025 4:48 PM
[2025-02-09] MEDS: ASPIRIN 81 MG PO SCH (21:03)
[2025-02-09] MEDS: QUEtiapine 25 MG TAB PO PRN (21:03)
[2025-02-10] MEDS: amLODIPine 10 MG TAB PO SCH (08:10)
--- NOTE | 2025-02-10 10:22 | P.PN ---
Subjective Progress Note Date: 02/09/25 - Reason for Consult Consult date: 02/08/25 Medical management, status post fall with right hip fracture - History of Present Illness This is a 79-year-old male who presented to the emergency department from [facility] after a mechanical fall and noted to have a proximal right hip fracture. Patient follows with Dr. Hurley and sees the nurse practitioner Justina Vargas outpatient with past medical history of Atrial fibrillation, recent CVA, deafness, hypertension, anxiety with depression, continued ongoing nicotine dependence, daily drinking approximately 2-3 beers daily and fireball shots. Patient reports he fell and was unable to get up and his son lives with him and found him and called EMS for ER transport. Patient was at [place] and sent here for further orthopedic evaluation. Patient is medically stable and given his age and comorbidities would deem him moderate risk although was ambulatory and independent prior to this and would proceed with surgical intervention. 02/09/2025 Patient is seen in follow-up today currently n.p.o. and is being taken to OR for surgical intervention on the proximal right hip fracture. Will await official report. Family is concerned with his mentation and there is a high concern for the fact that he drinks at least 3 beers daily although does not appear to be in active withdrawal. CIPR protocol is on board although recommend limiting the CARE TRANSPORT NURSE agents as patient is having some confusion. Will add Seroquel at night and will obtain CT of the brain as patient did fall that was unwitnessed and reports he did not hit his head although unsure if this is true as patient is a poor historian. Family is concerned. Encouraged family to stay with patient and frequent reorientation. Recommend limiting narcotics and CARE TRANSPORT NURSE agents. Review of systems: Constitutional: No reports of fatigue, fever, or chills Cardiovascular: No reports of chest pain or palpitations Respiratory: No reports of shortness of breath or cough GI: No reports of nausea, vomiting, or diarrhea : No reports of dysuria or retention Neurovascular: reports of generalized weakness and right hip pain All medications have been reviewed The rest of the 14-point review of systems is negative. PHYSICAL EXAMINATION: GENERAL: The patient is alert and oriented x2, lethargic although arousable. W ell developed, well nourished. Elderly appearing HEENT: Pupils are round and equally reacting to light. EOMI. No scleral icterus. No conjunctival pallor. Normocephalic, atraumatic. No pharyngeal erythema. No thyromegaly. CARDIOVASCULAR: S1 and S2 muffled PULMONARY: Chest is clear to auscultation, no wheezing or crackles. ABDOMEN: Soft, nontender, nondistended, normoactive bowel sounds. No palpable organomegaly. MUSCULOSKELETAL: No joint swelling or deformity. EXTREMITIES: No cyanosis, clubbing, or pedal edema. Right hip externally rotated and shortened NEUROLOGICAL: Gross neurological examination did not reveal any focal deficits. Diffusely weak SKIN: No rashes. Assessment: Mechanical fall with right hip pain noted to have right proximal hip fracture, scheduled to undergo surgical intervention today 02/09/2025 Acute confusion, concerns for toxic/metabolic encephalopathy, possibly contributing to narcotic use as well as daily alcohol abuse History of atrial fibrillation History of recent CVA History of hypertension Continued ongoing nicotine abuse Daily EtOH abuse, family reports 2-3 beers daily and a fireball shot, will continue CIWA protocol GI prophylaxis DVT prophylaxis Full code Plan: Patient is admitted under orthopedics with medicine on consult. Given patient's history of A-fib, recent CVA and hypertension with continued ongoing nicotine abuse and alcohol abuse, would deem the patient moderate risk for surgical intervention although somewhat noncompliant with medications and continued nicotine and alcohol. Risk versus benefits explained and patient is willing to proceed with surgical intervention as patient was independent and ambulatory prior to this Awaiting to undergo surgical intervention today and will await official report Patient is having some increased confusion with concerns of hospital-acquired delirium, CT brain obtained showing a no acute intracranial hemorrhage or midline shift moderate diffuse age-related cerebral atrophy and probable chronic small vessel ischemic change noted. Incidental finding of soft tissue density consistent with cerumen in the right external auditory canal noted. Recommend Seroquel at night as needed and also frequent reorientation and family to sit with patient as much as possible. Recommend avoiding CARE TRANSPORT NURSE agents and strongly recommend cautious use of narcotics. Home medications reviewed and resumed as appropriate Thank you kindly for this consultation. We will continue to follow with orthopedics during hospitalization. The impression and plan of care has been dictated by Grecia Linares, Nurse Practitioner as directed. Dr. Kasey MD I have performed a history and examination and MDM of this patient, discussed the same with the dictator, and agree with the dictator's assessment and plan as written ,documented as a scribe. Based on total visit time, I have performed more than 50% of the visit. Objective - Vital Signs Vital signs: Vital Signs Temp 97.3 F L 02/09/25 08:55 Pulse 81 02/09/25 08:55 Resp 18 02/09/25 08:55 BP 176/84 02/09/25 08:55 Pulse Ox 97 02/09/25 08:55 FiO2 Intake & Output 02/08/25 02/09/25 02/09/25 18:59 06:59 18:59 Intake Total 400 Output Total 800 800 Balance -800 -800 400 Intake: IV 400 Output: Urine 800 800 Other: Voiding Method Indwelling Catheter Indwelling Catheter - Labs CBC & Chem 7: 02/09/25 04:47 02/09/25 04:47 Labs: Abnormal Lab Results - Last 24 Hours (Table) 02/08/25 02/09/25 02/09/25 Range/Units 07:35 04:47 04:47 WBC 13.25 H 18.52 H (4.50-10.00) X 10*3/uL RBC 3.64 L 3.79 L (4.40-5.60) X 10*6/uL Hgb 11.7 L 11.9 L (13.0-17.0) g/dL Hct 34.1 L 35.8 L (39.6-50.0) % MCH 32.1 H (27.0-32.0) pg MPV 12.4 H (9.5-12.2) FL Immature Gran # 0.06 H 0.13 H (0.00-0.04) X 10*3/uL Neutrophils # 9.87 H 14.37 H (1.80-7.70) X 10*3/uL Monocytes # 1.58 H 2.29 H (0.20-1.00) X 10*3/uL Eosinophils # 0.01 L (0.04-0.35) X 10*3/uL Carbon Dioxide 21.2 L (21.6-31.8) mmol/L Anion Gap 12.80 H (4.00-12.00) mmol/L Creatinine 0.5 L (0.6-1.5) mg/dL BUN/Creatinine Ratio 28.60 H (12.00-20.00) Ratio Total Bilirubin 1.4 H (0.3-1.2) mg/dL Total Protein 5.7 L (6.2-8.2) g/dL Albumin 3.7 L (3.8-4.9) g/dL
[2025-02-10 10:48] LABS: Basophils # (A) 0.02 X 10*3/uL (0.00-0.10); Basophils % (A) 0.1 %; Eosinophils # (A) 0 X 10*3/uL (0.04-0.35); Eosinophils % (A) 0 %; HCT 30.2 % (39.6-50.0); HGB 10.2 g/dL (13.0-17.0); Lymphocytes # (A) 1.27 X 10*3/uL (0.90-5.00); Lymphocytes % (A) 9.2 %; MCH 31.9 pg (27.0-32.0); MCHC 33.8 g/dL (32.0-37.0); MCV 94.4 FL (80.0-97.0); Mean Platelet Volume 12.4 FL (9.5-12.2); Monocytes # (A) 1.45 X 10*3/uL (0.20-1.00); Monocytes % (A) 10.5 %; NRBC Per 100 WBC 0 X 10*3/uL (0.00-0.01); Neutrophils # (A) 11.03 X 10*3/uL (1.80-7.70); Neutrophils % (A) 79.8 %; Platelet Count 160 X 10*3/uL (140-440); WBC 13.82 X 10*3/uL (4.50-10.00)
[2025-02-10 10:59] LABS: Blood Urea Nitrogen 16.9 mg/dL (9.0-27.0); Chloride 105 mmol/L (96-109); Glucose 105 mg/dL (70-110); Magnesium 1.8 mg/dL (1.5-2.4); Potassium 3.6 mmol/L (3.5-5.5); Sodium 137 mmol/L (135-145)
[2025-02-10 11:00] LABS: ALT 14 U/L (10-49); AST 34 U/L (14-35); Albumin 3.2 g/dL (3.8-4.9); Albumin/Globulin Ratio 1.68 Ratio (1.60-3.17); Alkaline Phosphatase 58 U/L (41-126); Calcium 8.8 mg/dL (8.7-10.3); Carbon Dioxide 23.4 mmol/L (21.6-31.8); Globulin 1.9 g/dL (1.6-3.3); Total Bilirubin 1.2 mg/dL (0.3-1.2); Total Protein 5.1 g/dL (6.2-8.2)
[2025-02-10] MEDS: HEPARIN SODIUM,PORCINE 5,000 UNIT/ML 1 ML VIAL SQ SCH (11:24)
[2025-02-10] MEDS: HYDROmorphone 0.5 MG/0.5 ML SYRINGE IVP PRN (12:30)
--- NOTE | 2025-02-10 14:21 | P.PN ---
Subjective Progress Note Date: 02/10/25 Principal diagnosis: Right hip fracture Patient is seen at bedside this morning. He is postop day #1 from gamma nail for right IT femur fracture. He has pain at the surgical site as expected but denies any new complaints. He denies numbness, tingling or calf pain. Objective - Vital Signs Vital signs: Vital Signs Temp 98.3 F 02/10/25 07:31 Pulse 94 02/10/25 07:31 Resp 19 02/10/25 07:31 BP 178/85 02/10/25 07:31 Pulse Ox 96 02/10/25 07:31 FiO2 Intake & Output 02/09/25 02/10/25 02/10/25 18:59 06:59 18:59 Intake Total 3150 1150 Output Total 250 550 300 Balance 2900 600 -300 Intake: IV 1900 Intake, IV Titration 1250 1150 Amount Lactated Ringers 1,000 ml 1200 1100 @ 50 mls/hr IV .Q20H [facility]ITLIN Rx#:[id number] ceFAZolin 2 gm In Sodium 50 50 Chloride 0.9% 50 ml @ 100 mls/hr IVPB Q8H [facility]LIN Rx#: [id number] Output: Urine 200 550 300 Estimated Blood Loss 50 Other: Voiding Method Indwelling Catheter Indwelling Catheter Indwelling Catheter - Exam Inspection reveals a benign surgical wound. There is no active bleeding or drainage. Neurovascular status is intact throughout the lower extremity with motor and sensation fully intact. Calf is soft and nontender. 2+ dorsalis pedis pulse and less than 2 second cap refill is present. - Constitutional General appearance: Present: no acute distress - Labs CBC & Chem 7: 02/10/25 06:18 02/10/25 06:18 Labs: Abnormal Lab Results - Last 24 Hours (Table) 02/10/25 02/10/25 Range/Units 06:18 06:18 WBC 13.82 H (4.50-10.00) X 10*3/uL RBC 3.20 L (4.40-5.60) X 10*6/uL Hgb 10.2 L (13.0-17.0) g/dL Hct 30.2 L (39.6-50.0) % MPV 12.4 H (9.5-12.2) FL Immature Gran # 0.05 H (0.00-0.04) X 10*3/uL Neutrophils # 11.03 H (1.80-7.70) X 10*3/uL Monocytes # 1.45 H (0.20-1.00) X 10*3/uL Eosinophils # 0 L (0.04-0.35) X 10*3/uL Creatinine 0.5 L (0.6-1.5) mg/dL BUN/Creatinine Ratio 33.80 H (12.00-20.00) Ratio Total Protein 5.1 L (6.2-8.2) g/dL Albumin 3.2 L (3.8-4.9) g/dL Assessment and Plan (1) Intertrochanteric fracture of right hip Narrative/Plan: He will continue with routine postop orthopedic protocol including pain management, wound care, PT, DVT prophylaxis and medical management. Expect that he will transfer to [facility] in next few days Current Visit: Yes Status: Acute Priority: Medium Code(s): S72.141A - DISPLACED INTERTROCHANTERIC FRACTURE OF RIGHT FEMUR, INIT SNOMED Code(s): 977936725 Time with Patient: Less than 30
--- NOTE | 2025-02-10 14:46 | P.PN ---
Subjective Progress Note Date: 02/10/25 This is a 79-year-old male who presented to the emergency department from [facility] after a mechanical fall and noted to have a proximal right hip fracture. Patient follows with Dr. Hurley and sees the nurse practitioner Justina Vargas outpatient with past medical history of Atrial fibrillation, recent CVA, deafness, hypertension, anxiety with depression, continued ongoing nicotine dependence, daily drinking approximately 2-3 beers daily and fireball shots. Patient reports he fell and was unable to get up and his son lives with him and found him and called EMS for ER transport. Patient was at [place] and sent here for further orthopedic evaluation. Patient is medically stable an d given his age and comorbidities would deem him moderate risk although was ambulatory and independent prior to this and would proceed with surgical intervention. 02/09/2025 Patient is seen in follow-up today currently n.p.o. and is being taken to OR for surgical intervention on the proximal right hip fracture. Will await official report. Family is concerned with his mentation and there is a high concern for the fact that he drinks at least 3 beers daily although does not appear to be in active withdrawal. CIWA protocol is on board although recommend limiting the GAS BOOSTER ENGINEER agents as patient is having some confusion. Will add Seroquel at night and will obtain CT of the brain as patient did fall that was unwitnessed and reports he did not hit his head although unsure if this is true as patient is a poor historian. Family is concerned. Encouraged family to stay with patient and frequent reorientation. Recommend limiting narcotics and GAS BOOSTER ENGINEER agents. 02/10/2025 Patient is evaluated in follow-up in the medical floor. Patient is currently postoperative day #1 right hip screw fixation. Speech remains garbled which he has been having since his prior stroke however more pronounced per family. Labs today reveal a white blood cell count of 13.82, hemoglobin 10.2, sodium 137, potassium 3.6, BUN of 16.9 creatinine of 0.5. Today at the bedside patient reports that he is not currently having any pain and would recommend to limit narcotics and GAS BOOSTER ENGINEER agents. Family is still undecided about rehab. Review of systems: Constitutional: No reports of fatigue, fever, or chills Cardiovascular: No reports of chest pain or palpitations Respiratory: No reports of shortness of breath or cough GI: No reports of nausea, vomiting, or diarrhea : No reports of dysuria or retention Neurovascular: reports of generalized weakness and right hip pain All medications have been reviewed The rest of the 14-point review of systems is negative. PHYSICAL EXAMINATION: GENERAL: The patient is alert and oriented x2, lethargic although arousable. Well developed, well nourished. Elderly appearing HEENT: Pupils are round and equally reacting to light. EOMI. No scleral icterus. No conjunctival pallor. Normocephalic, atraumatic. No pharyngeal erythema. No thyromegaly. CARDIOVASCULAR: S1 and S2 muffled PULMONARY: Chest is clear to auscultation, no wheezing or crackles. ABDOMEN: Soft, nontender, nondistended, normoactive bowel sounds. No palpable organomegaly. MUSCULOSKELETAL: No joint swelling or deformity. EXTREMITIES: No cyanosis, clubbing, or pedal edema. Right hip externally rotated and shortened NEUROLOGICAL: Gross neurological examination did not reveal any focal deficits. Diffusely weak SKIN: No rashes. Assessment: Mechanical fall with right hip pain noted to have right proximal hip fracture, and is postoperative day 1 right hip screw fixation Acute confusion, concerns for toxic/metabolic encephalopathy, possibly contributing to narcotic use as well as daily alcohol abuse History of atrial fibrillation History of recent CVA History of hypertension Continued ongoing nicotine abuse Daily EtOH abuse, family reports 2-3 beers daily and a fireball shot, will continue CIWA protocol GI prophylaxis DVT prophylaxis Full code Plan: Patient is admitted under orthopedics with medicine on consult. Given patient's history of A-fib, recent CVA and hypertension with continued ongoing nicotine abuse and alcohol abuse, would deem the patient moderate risk for surgical intervention although somewhat noncompliant with medications and continued nicotine and alcohol. Risk versus benefits explained and patient is willing to proceed with surgical intervention as patient was independent and ambulatory prior to this Patient is having some increased confusion with concerns of hospital-acquired delirium, CT brain obtained showing a no acute intracranial hemorrhage or midline shift moderate diffuse age-related cerebral atrophy and probable chronic small vessel ischemic change noted. Incidental finding of soft tissue density consistent with cerumen in the right external auditory canal noted. Recommend Seroquel at night as needed and also frequent reorientation and family to sit with patient as much as possible. Recommend avoiding GAS BOOSTER ENGINEER agents and strongly recommend cautious use of narcotics. Home medications reviewed and resumed as appropriate Thank you kindly for this consultation. We will continue to follow with orthopedics during hospitalization. The impression and plan of care has been dictated by Sarah Small, Nurse Practitioner as directed. Dr. Kasey MD I have performed a history and examination and MDM of this patient, discussed the same with the dictator, and agree with the dictator's assessment and plan as written ,documented as a scribe. Based on total visit time, I have performed more than 50% of the visit. Objective - Vital Signs Vital signs: Vital Signs Temp 98.0 F 02/10/25 14:08 Pulse 86 02/10/25 14:08 Resp 21 02/10/25 14:08 BP 154/77 02/10/25 14:08 Pulse Ox 94 L 02/10/25 14:08 FiO2 Intake & Output 02/09/25 02/10/25 02/10/25 18:59 06:59 18:59 Intake Total 3150 1150 Output Total 250 550 300 Balance 2900 600 -300 Intake: IV 1900 Intake, IV Titration 1250 1150 Amount Lactated Ringers 1,000 ml 1200 1100 @ 50 mls/hr IV .Q20H CAITLIN Rx#:[id number] ceFAZolin 2 gm In Sodium 50 50 Chloride 0.9% 50 ml @ 100 mls/hr IVPB Q8H CAITLIN Rx#: [id number] Output: Urine 200 550 300 Estimated Blood Loss 50 Other: Voiding Method Indwelling Catheter Indwelling Catheter Indwelling Catheter - Labs CBC & Chem 7: 02/10/25 06:18 02/10/25 06:18 Labs: Abnormal Lab Results - Last 24 Hours (Table) 02/10/25 02/10/25 Range/Units 06:18 06:18 WBC 13.82 H (4.50-10.00) X 10*3/uL RBC 3.20 L (4.40-5.60) X 10*6/uL Hgb 10.2 L (13.0-17.0) g/dL Hct 30.2 L (39.6-50.0) % MPV 12.4 H (9.5-12.2) FL Immature Gran # 0.05 H (0.00-0.04) X 10*3/uL Neutrophils # 11.03 H (1.80-7.70) X 10*3/uL Monocytes # 1.45 H (0.20-1.00) X 10*3/uL Eosinophils # 0 L (0.04-0.35) X 10*3/uL Creatinine 0.5 L (0.6-1.5) mg/dL BUN/Creatinine Ratio 33.80 H (12.00-20.00) Ratio Total Protein 5.1 L (6.2-8.2) g/dL Albumin 3.2 L (3.8-4.9) g/dL Assessment and Plan Time with Patient: Less than 30
[2025-02-11] MEDS: HALOPERIDOL LACTATE 5 MG/ML 1 ML VIAL IM STA (00:44)
--- NOTE | 2025-02-11 10:16 | P.PN ---
Progress Note - Text Progress Note Date: 02/11/25 Orthopedics: History of present illness: Patient is a pleasant 79-year-old male who is seen examined at bedside for follow-up evaluation of his right hip. He is status post right hip intramedullary nail fixation for right intertrochanteric hip fracture status post fall. He continues to have significant difficulty with his mobilization. He was able to transfer to a bedside chair with assistance of therapy today. He is toe-touch weightbearing only on the right lower extremity. His Mota catheter remains intact. He is eating without difficulty. His right hip pain is adequately controlled. Given his significant difficulty with mobilization, we are currently planning for discharge to rehabilitation facility as early as this coming 02/13/2025. Patient has been seen by case management. There has been some debate with the family on discharge to rehab versus discharge home with home health services. Patient continues to be seen examined by medicine for his multiple other medical diagnoses including atrial fibrillation, hypertension, recent CVA, ongoing nicotine abuse, and daily tobacco abuse Physical Exam Intramedullary [place] for Intertrochanteric Fracture: Status post surgical day number 2 Patient is examined lying in bed Patient is awake and alert, and oriented 3 Vital signs stable Adequate chest excursion with deep inspiration and expiration; patient currently on O2 nasal cannula No signs or symptoms of DVT; no calf pain Lower extremity cuffs not currently in place bilaterally Dressing of the right hip is clean, dry, and intact; no erythema, purulence, or signs of infection [place] over the proximal incision site at the right hip are clean, dry, and intact with no active drainage No pain with palpation over the surgical sites Dorsiflexion and plantarflexion positive sustained bilaterally Neurovascularly intact bilateral lower extremities Mota catheter intact Assessment: Status post right intramedullary nail fixation for right intertrochanteric hip fracture Inability ambulate due to hip Right hip pain Status post fall Atrial fibrillation Hypertension Recent CVA Ongoing nicotine abuse Daily alcohol abuse Plan: 1. Patient to remain toe-touch weightbearing on the right lower extremity; patient may work with physical therapy to increase mobility and ambulation 2. Keep dressing over the right hip clean, dry, and intact 3. Discontinue Mota catheter when patient is able to increase mobility and ambulation, we will plan for discontinuation of Mota catheter today 4. Continue pain control with oral [place] and IV Dilaudid as needed for pain control; wean patient off of Dilaudid in anticipation for discharge 5. Continue with anticoagulation therapy with aspirin 81 mg twice a day 6. Medicine to continue following the patient for his multiple other medical diagnosis including atrial fibrillation, hypertension, recent CVA, ongoing nicotine abuse, and daily tobacco abuse 7. We'll continue to follow the patient closely; depending on the patient's progress, we may plan for discharge as early as 02/13/2025 to a rehabilitation facility 8. Patient can follow-up with Gray Navarrete PA-C PA-C or Dr. Carlos Gil at [facility] in 2-3 weeks following discharge
[2025-02-11] MEDS: HALOPERIDOL LACTATE 5 MG/ML 1 ML VIAL IM PRN (11:34)
[2025-02-11] MEDS: NICOTINE 14MG/24HR PATCH TRANSDERM SCH (12:43)
[2025-02-11] MEDS: NYSTATIN 100,000 UNIT/ML SUSP 500,000 UNIT/5 ML CUP PO SCH (13:05)
--- NOTE | 2025-02-11 15:41 | P.PN ---
Subjective Progress Note Date: 02/11/25 This is a 79-year-old male who presented to the emergency department from [facility] after a mechanical fall and noted to have a proximal right hip fracture. Patient follows with Dr. Hurley and sees the nurse practitioner Justina Vargas outpatient with past medical history of Atrial fibrillation, recent CVA, deafness, hypertension, anxiety with depression, continued ongoing nicotine dependence, daily drinking approximately 2-3 beers daily and fireball shots. Patient reports he fell and was unable to get up and his son lives with him and found him and called EMS for ER transport. Patient was at [place] and sent here for further orthopedic evaluation. Patient is medically stable an d given his age and comorbidities would deem him moderate risk although was ambulatory and independent prior to this and would proceed with surgical intervention. 02/09/2025 Patient is seen in follow-up today currently n.p.o. and is being taken to OR for surgical intervention on the proximal right hip fracture. Will await official report. Family is concerned with his mentation and there is a high concern for the fact that he drinks at least 3 beers daily although does not appear to be in active withdrawal. CIWA protocol is on board although recommend limiting the ACCOUNTING METHODS ANALYST agents as patient is having some confusion. Will add Seroquel at night and will obtain CT of the brain as patient did fall that was unwitnessed and reports he did not hit his head although unsure if this is true as patient is a poor historian. Family is concerned. Encouraged family to stay with patient and frequent reorientation. Recommend limiting narcotics and ACCOUNTING METHODS ANALYST agents. 02/10/2025 Patient is evaluated in follow-up in the medical floor. Patient is currently postoperative day #1 right hip screw fixation. Speech remains garbled which he has been having since his prior stroke however more pronounced per family. Labs today reveal a white blood cell count of 13.82, hemoglobin 10.2, sodium 137, potassium 3.6, BUN of 16.9 creatinine of 0.5. Today at the bedside patient reports that he is not currently having any pain and would recommend to limit narcotics and ACCOUNTING METHODS ANALYST agents. Family is still undecided about rehab. 02/11/2025 Patient is evaluated in follow-up on the medical floor. He is sitting up in the chair he is actively acute smoking a cigarette and he remains confused. He was offered a nicotine patch. He did require a dose of Haldol last night secondary to agitation and restlessness. He is postoperative day #2 right hip screw fixation. Review of systems: Constitutional: No reports of fatigue, fever, or chills Cardiovascular: No reports of chest pain or palpitations Respiratory: No reports of shortness of breath or cough GI: No reports of nausea, vomiting, or diarrhea : No reports of dysuria or retention Neurovascular: reports of generalized weakness and right hip pain All medications have been reviewed The rest of the 14-point review of systems is negative. PHYSICAL EXAMINATION: GENERAL: The patient is alert and oriented x2, lethargic although arousable. Well developed, well nourished. Elderly appearing HEENT: Pupils are round and equally reacting to light. EOMI. No scleral icterus. No conjunctival pallor. Normocephalic, atraumatic. No pharyngeal erythema. No thyromegaly. CARDIOVASCULAR: S1 and S2 muffled PULMONARY: Chest is clear to auscultation, no wheezing or crackles. ABDOMEN: Soft, nontender, nondistended, normoactive bowel sounds. No palpable organomegaly. MUSCULOSKELETAL: No joint swelling or deformity. EXTREMITIES: No cyanosis, clubbing, or pedal edema. Right hip externally rotated and shortened NEUROLOGICAL: Gross neurological examination did not reveal any focal deficits. Diffusely weak SKIN: No rashes. Assessment: Mechanical fall with right hip pain noted to have right proximal hip fracture, and is postoperative day 2 right hip screw fixation Acute confusion, concerns for toxic/metabolic encephalopathy, possibly contributing to narcotic use as well as daily alcohol abuse History of atrial fibrillation History of recent CVA History of hypertension Continued ongoing nicotine use Daily EtOH abuse, family reports 2-3 beers daily and a fireball shot, will continue CIWA protocol GI prophylaxis DVT prophylaxis Full code Plan: Patient is admitted under orthopedics with medicine on consult. Given patient's history of A-fib, recent CVA and hypertension with continued ongoing nicotine abuse and alcohol abuse, would deem the patient moderate risk for surgical intervention although somewhat noncompliant with medications and continued nicotine and alcohol. Risk versus benefits explained and patient is willing to proceed with surgical intervention as patient was independent and ambulatory prior to this Patient is having some increased confusion with concerns of hospital-acquired delirium, CT brain obtained showing a no acute intracranial hemorrhage or midline shift moderate diffuse age-related cerebral atrophy and probable chronic small vessel ischemic change noted. Incidental finding of soft tissue density consistent with cerumen in the right external auditory canal noted. Recommend Seroquel at night as needed and also frequent reorientation and family to sit with patient as much as possible. Recommend avoiding ACCOUNTING METHODS ANALYST agents and strongly recommend cautious use of narcotics. And nicotine patch Haldol as needed Home medications reviewed and resumed as appropriate Thank you kindly for this consultation. We will continue to follow with orthopedics during hospitalization. The impression and plan of care has been dictated by Sarah Small, Nurse Practitioner as directed. Dr. Kasey MD I have performed a history and examination and MDM of this patient, discussed the same with the dictator, and agree with the dictator's assessment and plan as written ,documented as a scribe. Based on total visit time, I have performed more than 50% of the visit. Objective - Vital Signs Vital signs: Vital Signs Temp 97.6 F 02/11/25 07:32 Pulse 83 02/11/25 07:32 Resp 21 02/11/25 07:32 BP 198/85 02/11/25 07:32 Pulse Ox 96 02/11/25 07:32 FiO2 Intake & Output 02/10/25 02/11/25 02/11/25 18:59 06:59 18:59 Output Total 425 850 450 Balance -425 -850 -450 Output: Urine 425 850 450 Uretheral (Mota) 450 Other: Voiding Method Indwelling Catheter Indwelling Catheter Indwelling Catheter # Voids 1 - Labs CBC & Chem 7: 02/10/25 06:18 02/10/25 06:18 Assessment and Plan Time with Patient: Less than 30
[2025-02-11] MEDS: LORazepam 1 MG/0.5 ML VIAL IV STA (23:26)
[2025-02-12] MEDS: LORazepam 1 MG/0.5 ML VIAL IV STA (02:02)
[2025-02-12 07:20] LABS: Basophils % (A) 0 %; Eosinophils % (A) 0 %; HCT 34.1 % (39.0-53.0); Lymphocytes # (A) 0.9 k/uL (1.0-4.8); Lymphocytes % (A) 8 %; MCH 30.9 pg (25.0-35.0); MCHC 32.2 g/dL (31.0-37.0); Monocytes # (A) 0.9 k/uL (0-1.0); Monocytes % (A) 7 %; Neutrophils # (A) 10.2 k/uL (1.3-7.7); Neutrophils % (A) 84 %; Platelet Count 255 k/uL (150-450); RBC 3.55 m/uL (4.30-5.90); RDW 12.9 % (11.5-15.5); WBC 12.1 k/uL (3.8-10.6)
[2025-02-12 07:42] LABS: African American GFR (CKD) >90 (>60 ml/min/1.73 sqM); Anion Gap 13 mmol/L; Blood Urea Nitrogen 17 mg/dL (9-20); Calcium 9.3 mg/dL (8.4-10.2); Carbon Dioxide 20 mmol/L (22-30); Chloride 103 mmol/L (98-107); Glucose 104 mg/dL (74-99); Non-African American GFR(CKD) >90 (>60 ml/min/1.73 sqM); Potassium 3.5 mmol/L (3.5-5.1); Sodium 136 mmol/L (137-145)
--- NOTE | 2025-02-12 10:25 | XR ---
EXAMINATION TYPE: XR chest 2V DATE OF EXAM: 02/12/2025 10:19 AM COMPARISON: Chest radiographs from 02/07/2025 TECHNIQUE: XR chest 2V Frontal and lateral views of the chest. CLINICAL INDICATION:Male, 79 years old with history of fever; FINDINGS: Lungs/Pleura: There is no evidence of pleural effusion or pneumothorax. Minimal bilateral lower lobe subsegmental atelectasis. Pulmonary vascularity: Central pulmonary vascular congestion. Heart/mediastinum: Cardiomediastinal silhouette is enlarged and stable. Musculoskeletal: Multiple level degenerative disc disease changes seen throughout the spine. IMPRESSION: Cardiomegaly and central pulmonary vascular congestion. Minimal bilateral lateral lower lobe subsegme ntal atelectasis. [facility], , 02/12/2025 10:22 AM
--- NOTE | 2025-02-12 12:24 | P.PN ---
Progress Note - Text Progress Note Date: 02/12/25 Orthopedics: History of present illness: Patient is a pleasant 79-year-old male who is seen examined at bedside for follow-up evaluation of his right hip. He is status post right hip intramedullary nail fixation for right intertrochanteric hip fracture status post fall. He has not had any significant change in his symptoms as compared to yesterday. He continues to have significant difficulty with his mobilization. He was able to transfer to a bedside chair with assistance of therapy yesterday. He is currently comfortably in bed. He is toe-touch weightbearing only on the right lower extremity. His Mota catheter has been discontinued. He is eating without difficulty. His right hip pain is adequately controlled. Given his significant difficulty with mobilization, we are currently planning for discharge to rehabilitation facility as early as this coming 02/13/2025, if cleared and approved. Patient has been seen by case management. Patient continues to be seen examined by medicine for his multiple other medical diagnoses including atrial fibrillation, hypertension, recent CVA, ongoing nicotine abuse, and daily tobacco abuse. Medicine's note states he did require dose of Haldol secondary to agitation and restlessness. Physical Exam Intramedullary [place] for Intertrochanteric Fracture: Status post surgical day number 3 Patient is examined lying in bed Patient is awake and alert, and oriented 3; patient appears to be answering questions appropriately Vital signs stable Adequate chest excursion with deep inspiration and expiration; patient currently on O2 nasal cannula No signs or symptoms of DVT; no calf pain Lower extremity cuffs not currently in place bilaterally Dressing of the right hip is dry and intact; no erythema, purulence, or signs of infection Some dried drainage over the proximal surgical incision dressing No pain with palpation over the surgical sites Dorsiflexion and plantarflexion positive sustained bilaterally Neurovascularly intact bilateral lower extremities Assessment: Status post right intramedullary nail fixation for right intertrochanteric hip fracture Inability ambulate due to hip Right hip pain Status post fall Atrial fibrillation Hypertension Recent CVA Ongoing nicotine abuse Daily alcohol abuse Plan: We will continue with our plan as set forth yesterday. 1. Patient to remain toe-touch weightbearing on the right lower extremity; patient may work with physical therapy to increase mobility and ambulation 2. Keep dressing over the right hip clean, dry, and intact 3. Continue pain control with oral [place] and IV Dilaudid as needed for pain control; wean patient off of Dilaudid in anticipation for discharge 4. Continue with anticoagulation therapy with aspirin 81 mg twice a day 5. Medicine to continue following the patient for his multiple other medical diagnosis including atrial fibrillation, hypertension, recent CVA, ongoing nicotine abuse, and daily tobacco abuse 6. We'll continue to follow the patient closely; depending on the patient's progress, we may plan for discharge as early as 02/13/2025 to a rehabilitation facility 7. Patient can follow-up with Gray Navarrete PA-C PA-C or Dr. Carlos Gil at [facility] in 2-3 weeks following discharge
--- NOTE | 2025-02-12 13:24 | P.PN ---
Subjective Progress Note Date: 02/12/25 This is a 79-year-old male who presented to the emergency department from [facility] after a mechanical fall and noted to have a proximal right hip fracture. Patient follows with Dr. Hurley and sees the nurse practitioner Justina Vargas outpatient with past medical history of Atrial fibrillation, recent CVA, deafness, hypertension, anxiety with depression, continued ongoing nicotine dependence, daily drinking approximately 2-3 beers daily and fireball shots. Patient reports he fell and was unable to get up and his son lives with him and found him and called EMS for ER transport. Patient was at [place] and sent here for further orthopedic evaluation. Patient is medically stable an d given his age and comorbidities would deem him moderate risk although was ambulatory and independent prior to this and would proceed with surgical intervention. 02/09/2025 Patient is seen in follow-up today currently n.p.o. and is being taken to OR for surgical intervention on the proximal right hip fracture. Will await official report. Family is concerned with his mentation and there is a high concern for the fact that he drinks at least 3 beers daily although does not appear to be in active withdrawal. CIWA protocol is on board although recommend limiting the MITERING MACHINE OPERATOR agents as patient is having some confusion. Will add Seroquel at night and will obtain CT of the brain as patient did fall that was unwitnessed and reports he did not hit his head although unsure if this is true as patient is a poor historian. Family is concerned. Encouraged family to stay with patient and frequent reorientation. Recommend limiting narcotics and MITERING MACHINE OPERATOR agents. 02/10/2025 Patient is evaluated in follow-up in the medical floor. Patient is currently postoperative day #1 right hip screw fixation. Speech remains garbled which he has been having since his prior stroke however more pronounced per family. Labs today reveal a white blood cell count of 13.82, hemoglobin 10.2, sodium 137, potassium 3.6, BUN of 16.9 creatinine of 0.5. Today at the bedside patient reports that he is not currently having any pain and would recommend to limit narcotics and MITERING MACHINE OPERATOR agents. Family is still undecided about rehab. 02/11/2025 Patient is evaluated in follow-up on the medical floor. He is sitting up in the chair he is actively acute smoking a cigarette and he remains confused. He was offered a nicotine patch. He did require a dose of Haldol last night secondary to agitation and restlessness. He is postoperative day #2 right hip screw fixation. 02/12/2025 Patient noted today in follow-up in the medical floor he is sitting up in the chair. Patient is postoperative day #3 right hip screw fixation. He appears less agitated today. He continues with a nicotine patch. He did require a dose of Haldol throughout the evening. Patient had a low-grade temp overnight of 100.1. He does need encouragement to use the incentive spirometer although due to his altered mentation he is unable to use it. Chest x-ray reveals cardiomegaly and central pulmonary vascular congestion with minimal bilateral l ateral lower lobe subsegmental atelectasis. Patient is currently not receiving IV fluids. Labs today reveal a sodium level of 136 potassium of 3.5 BUN of 17 creatinine 0.3. Sickle cell count is improving and down to 12.1. He is saturating well 97% on room air oxygen. Review of systems: Constitutional: No reports of fatigue, fever, or chills Cardiovascular: No reports of chest pain or palpitations Respiratory: No reports of shortness of breath or cough GI: No reports of nausea, vomiting, or diarrhea : No reports of dysuria or retention Neurovascular: reports of generalized weakness and right hip pain All medications have been reviewed The rest of the 14-point review of systems is negative. PHYSICAL EXAMINATION: GENERAL: The patient is alert and oriented x2, lethargic although arousable. Well developed, well nourished. Elderly appearing HEENT: Pupils are round and equally reacting to light. EOMI. No scleral icterus. No conjunctival pallor. Normocephalic, atraumatic. No pharyngeal erythema. No thyromegaly. CARDIOVASCULAR: S1 and S2 muffled PULMONARY: Chest is clear to auscultation, no wheezing or crackles. ABDOMEN: Soft, nontender, nondistended, normoactive bowel sounds. No palpable organomegaly. MUSCULOSKELETAL: No joint swelling or deformity. EXTREMITIES: No cyanosis, clubbing, or pedal edema. Right hip externally rotated and shortened NEUROLOGICAL: Gross neurological examination did not reveal any focal deficits. Diffusely weak SKIN: No rashes. Assessment: Mechanical fall with right hip pain noted to have right proximal hip fracture, and is postoperative day 2 right hip screw fixation Acute confusion, concerns for toxic/metabolic encephalopathy, possibly contributing to narcotic use as well as daily alcohol abuse History of atrial fibrillation History of recent CVA History of hypertension Continued ongoing nicotine use Daily EtOH abuse, family reports 2-3 beers daily and a fireball shot, will continue CIWA protocol GI prophylaxis DVT prophylaxis Full code Plan: Patient is admitted under orthopedics with medicine on consult. Given patient's history of A-fib, recent CVA and hypertension with continued ongoing nicotine abuse and alcohol abuse, would deem the patient moderate risk for surgical intervention although somewhat noncompliant with medications and continued nicotine and alcohol. Risk versus benefits explained and patient is willing to proceed with surgical intervention as patient was independent and ambulatory prior to this Patient is having some increased confusion with concerns of hospital-acquired delirium, CT brain obtained showing a no acute intracranial hemorrhage or midline shift moderate diffuse age-related cerebral atrophy and probable chronic small vessel ischemic change noted. Incidental finding of soft tissue density consistent with cerumen in the right external auditory canal noted. Recommend Seroquel at night as needed and also frequent reorientation and family to sit with patient as much as possible. Patient does required doses of IV Haldol throughout the evening to settle down in addition to the Seroquel. Recommend avoiding MITERING MACHINE OPERATOR agents if possible and strongly recommend cautious use of narcotics. Patient continues with nicotine patch Patient had a one-time low-grade fever does have encouragement to use the incentive spirometer although due to his confusion this is difficult. A chest x-ray reveals possible pulmonary vascular congestion and a proBNP was ordered. Although he is saturating well on room air and does not appear to be volume overloaded at this time. Home medications reviewed and resumed as appropriate Thank you kindly for this consultation. We will continue to follow with orthopedics during hospitalization. Family continues to discuss wanting patient to return home on discharge although PT OT is recommending subacute rehab. Follow-up with the family and social work on Thursday. The impression and plan of care has been dictated by Sarah Small, Nurse Practitioner as directed. Dr. Kasey MD I have performed a history and examination and MDM of this patient, discussed the same with the dictator, and agree with the dictator's assessment and plan as written ,documented as a scribe. Based on total visit time, I have performed more than 50% of the visit. Objective - Vital Signs Vital signs: Vital Signs Temp 99.1 F 02/12/25 07:11 Pulse 75 02/12/25 07:11 Resp 19 02/12/25 07:11 BP 156/72 02/12/25 07:11 Pulse Ox 97 02/12/25 07:11 FiO2 Intake & Output 02/11/25 02/12/25 02/12/25 18:59 06:59 18:59 Intake Total 540 120 Output Total 450 Balance 90 120 Intake: Intake, IV Titration 300 Amount Lactated Ringers 1,000 ml 300 @ 50 mls/hr IV .Q20H [facility] Rx#:[id number] Oral 240 120 Output: Urine 450 Uretheral (Mota) 450 Other: Voiding Method Indwelling Catheter Indwelling Catheter # Voids 3 3 - Labs CBC & Chem 7: 02/12/25 06:36 02/12/25 06:36 Labs: Abnormal Lab Results - Last 24 Hours (Table) 02/12/25 02/12/25 Range/Units 06:36 06:36 WBC 12.1 H (3.8-10.6) k/uL RBC 3.55 L (4.30-5.90) m/uL Hgb 11.0 L (13.0-17.5) gm/dL Hct 34.1 L (39.0-53.0) % Neutrophils # 10.2 H (1.3-7.7) k/uL Lymphocytes # 0.9 L (1.0-4.8) k/uL Sodium 136 L (137-145) mmol/L Carbon Dioxide 20 L (22-30) mmol/L Creatinine 0.38 L (0.66-1.25) mg/dL Glucose 104 H (74-99) mg/dL Assessment and Plan Time with Patient: Less than 30
[2025-02-12 17:45] LABS: Influenza A Not Detected (Not Detectd); Influenza B Not Detected (Not Detectd); RSV Not Detected (Not Detectd)
[2025-02-13 01:10] LABS: Appearance,Urine Clear (Clear); Bilirubin,Urine Negative (Negative); Blood,Urine Negative (Negative); Color,Urine Yellow; Glucose,Urine (UA) Negative (Negative); Ketones,Urine 2+ (Negative); Leukocyte Esterase,Urine Negative (Negative); Nitrite,Urine Negative (Negative); Protein,Urine Trace (Negative); Specific Gravity,Urine 1.021 (1.001-1.035)
[2025-02-13 09:19] LABS: Basophils # (A) 0.03 X 10*3/uL (0.00-0.10); Basophils % (A) 0.3 %; Eosinophils # (A) 0.09 X 10*3/uL (0.04-0.35); Eosinophils % (A) 0.8 %; HCT 32.2 % (39.6-50.0); HGB 10.7 g/dL (13.0-17.0); Lymphocytes # (A) 1.56 X 10*3/uL (0.90-5.00); Lymphocytes % (A) 13.7 %; MCH 31.5 pg (27.0-32.0); MCHC 33.2 g/dL (32.0-37.0); MCV 94.7 FL (80.0-97.0); Mean Platelet Volume 12.1 FL (9.5-12.2); Monocytes # (A) 1.01 X 10*3/uL (0.20-1.00); Monocytes % (A) 8.8 %; NRBC Per 100 WBC 0 X 10*3/uL (0.00-0.01); Neutrophils # (A) 8.68 X 10*3/uL (1.80-7.70); Platelet Count 299 X 10*3/uL (140-440); WBC 11.42 X 10*3/uL (4.50-10.00)
[2025-02-13 09:28] LABS: Blood Urea Nitrogen 20.4 mg/dL (9.0-27.0); Calcium 9.3 mg/dL (8.7-10.3); Chloride 106 mmol/L (96-109); Glucose 106 mg/dL (70-110); Potassium 3.4 mmol/L (3.5-5.5); Sodium 142 mmol/L (135-145)
--- NOTE | 2025-02-13 12:45 | P.DS ---
Providers Date of admission: 02/07/25 11:10 Expected date of discharge: 02/13/25 Attending physician: Carlos Gil Consults: 02/07/25 11:08 Consult Physician Urgent Consulting Provider: Deng Hyde Consult Reason/Comments: Medical clearance for surgery Do you want consulting provider notified?: Yes Primary care physician: Emery Mei - Discharge Diagnosis(es) (1) Intertrochanteric fracture of right hip Patient was admitted to the OR on 02/09/25 to undergo a ORIG/Gamma nail for right IT femur fracture. He desired to proceed with elective surgery after given info rmed consent. He underwent the above procedure which he tolerated well without complication. Postoperative hospital course has remained without complication. On day of discharge he is afebrile, vital signs stable, labs within acceptable ranges, tolerating by mouth meds and diet, voiding without difficulty, positive flatus, denies abdominal pain or calf pain, pain is controlled on oral pain medication and has no new complaints. Wound is benign, neurovascular status is intact, calf is soft and nontender, abdomen soft and nontender. Review of systems is negative for numbness, tingling, fever, chills, chest pain, shortness of breath, nausea, vomiting, dizziness, headaches, slurred speech or other. Current Visit: Yes Status: Acute Priority: Medium Procedures: Gamma nail for right IT femur fracture Patient Condition at Discharge: Fair Plan - Discharge Summary Discharge Rx Participant: Yes New Discharge Prescriptions: New HYDROcodone/APAP 5-325MG [[place] 5-325] 1 - 2 tab PO Q4HR PRN #30 tab PRN Reason: Pain Ondansetron [Zofran] 4 mg PO Q8HR PRN #21 tab PRN Reason: Nausea Docusate [Colace] 100 mg PO BID #60 capsule No Action Atorvastatin [Lipitor] 20 mg PO DAILY Metoprolol Tartrate [Lopressor] 25 mg PO BID Aspirin EC [Ecotrin Low Dose] 81 mg PO DAILY lisinopriL [Zestril] 20 mg PO DAILY Pantoprazole Sodium [Protonix] 40 mg PO DAILY FLUoxetine HCL 20 mg PO DAILY Dabigatran [Pradaxa] 150 mg PO BID Discharge Medication List Atorvastatin [Lipitor] 20 mg PO DAILY 09/08/24 [History] FLUoxetine HCL 20 mg PO DAILY 09/08/24 [History] Aspirin EC [Ecotrin Low Dose] 81 mg PO DAILY 03/11/25 [History] Dabigatran [Pradaxa] 150 mg PO BID 02/07/25 [History] Metoprolol Tartrate [Lopressor] 25 mg PO BID 02/07/25 [History] Pantoprazole Sodium [Protonix] 40 mg PO DAILY 02/07/25 [History] lisinopriL [Zestril] 20 mg PO DAILY 02/07/25 [History] Docusate [Colace] 100 mg PO BID #60 capsule 02/13/25 [Rx] HYDROcodone/APAP 5-325MG [[place] 5-325] 1 - 2 tab PO Q4HR PRN #30 tab 02/13/25 [Rx] Ondansetron [Zofran] 4 mg PO Q8HR PRN #21 tab 02/13/25 [Rx] Follow up Appointment(s)/Referral(s): Gray Navarrete PAC [PHYSICIAN APPLIANCE TESTER] - 2 Weeks (Patient may follow-up with Gray Navarrete PA-C or Dr. Carlos Gil at [facility] in 2-3 weeks following discharge. ) Emery Hurley MD [Primary Care Provider] - 1-2 days Activity/Diet/Wound Care/Special Instructions: 1. Toe-touch weightbearing only on the right lower extremity with the assistanc e of a walker 2. Keep kilo intact at the surgical sites of the right hip until follow-up appointment in the office 3. Keep dressings over the right hip clean, dry, and intact 4. Dressings may be removed in 3 days 5. If surgical sites remain clean, dry, and intact, patient may shower without a dressing intact at that time 6. Take medications as prescribed Discharge/Stand Alone Forms: AA Meetings [place], [facility], In Substance Abuse Facilities Discharge Disposition: TRANSFER TO SNF/ECF
[2025-02-14 03:30] VITALS: TEMP 98.4
--- NOTE | 2025-02-14 06:07 | P.PN ---
Subjective Progress Note Date: 02/13/25 This is a 79-year-old male who presented to the emergency department from [facility] after a mechanical fall and noted to have a proximal right hip fracture. Patient follows with Dr. Hurley and sees the nurse practitioner Justina Vargas outpatient with past medical history of Atrial fibrillation, recent CVA, deafness, hypertension, anxiety with depression, continued ongoing nicotine dependence, daily drinking approximately 2-3 beers daily and fireball shots. Patient reports he fell and was unable to get up and his son lives with him and found him and called EMS for ER transport. Patient was at [place] and sent here for further orthopedic evaluation. Patient is medically stable and given his age and comorbidities would deem him moderate risk although was ambulatory and independent prior to this and would proceed with surgical intervention. 02/09/2025 Patient is seen in follow-up today currently n.p.o. and is being taken to OR for surgical intervention on the proximal right hip fracture. Will await official report. Family is concerned with his mentation and there is a high concern for the fact that he drinks at least 3 beers daily although does not appear to be in active withdrawal. CIWA protocol is on board although recommend limiting the SENIOR STRATEGY MANAGER agents as patient is having some confusion. Will add Seroquel at night and will obtain CT of the brain as patient did fall that was unwitnessed and reports he did not hit his head although unsure if this is true as patient is a poor historian. Family is concerned. Encouraged family to stay with patient and frequent reorientation. Recommend limiting narcotics and SENIOR STRATEGY MANAGER agents. 02/10/2025 Patient is evaluated in follow-up in the medical floor. Patient is currently postoperative day #1 right hip screw fixation. Speech remains garbled which he has been having since his prior stroke however more pronounced per family. Labs today reveal a white blood cell count of 13.82, hemoglobin 10.2, sodium 137, potassium 3.6, BUN of 16.9 creatinine of 0.5. Today at the bedside patient reports that he is not currently having any pain and would recommend to limit narcotics and SENIOR STRATEGY MANAGER agents. Family is still undecided about rehab. 02/11/2025 Patient is evaluated in follow-up on the medical floor. He is sitting up in the chair he is actively acute smoking a cigarette and he remains confused. He was offered a nicotine patch. He did require a dose of Haldol last night secondary to agitation and restlessness. He is postoperative day #2 right hip screw fixation. 02/12/2025 Patient noted today in follow-up in the medical floor he is sitting up in the chair. Patient is postoperative day #3 right hip screw fixation. He appears less agitated today. He continues with a nicotine patch. He did require a dose of Haldol throughout the evening. Patient had a low-grade temp overnight of 100.1. He does need encouragement to use the incentive spirometer although due to his altered mentation he is unable to use it. Chest x-ray reveals cardiomegaly and central pulmonary vascular congestion with minimal bilateral lateral lower lobe subsegmental atelectasis. Patient is currently not receiving IV fluids. Labs today reveal a sodium level of 136 potassium of 3.5 BUN of 17 creatinine 0.3. White cell count is improving and down to 12.1. He is saturating well 97% on room air oxygen. 02/13/2025 Patient is seen in follow-up status post right hip fixation. Patient is currently sitting up in the chair and has been encouraged to use incentive spirometer. Patient to continue on Seroquel at night and recommend to continue. Continue with frequent reorientation and working on going to ECF. Patient is quite weak and family initially discussing going home with home care although they would like him to go to rehab now on discharge for continued strength and mobility. Review of systems: Constitutional: No reports of fatigue, fever, or chills Cardiovascular: No reports of chest pain or palpitations Respiratory: No reports of shortness of breath or cough GI: No reports of nausea, vomiting, or diarrhea : No reports of dysuria or retention Neurovascular: reports of generalized weakness and right hip pain All medications have been reviewed The rest of the 14-point review of systems is negative. PHYSICAL EXAMINATION: GENERAL: The patient is alert and oriented x2, more awake today, currently sitt ing up in the chair. Well developed, well nourished. Elderly appearing HEENT: Pupils are round and equally reacting to light. EOMI. No scleral icterus. No conjunctival pallor. Normocephalic, atraumatic. No pharyngeal erythema. No thyromegaly. CARDIOVASCULAR: S1 and S2 muffled PULMONARY: Chest is clear to auscultation, no wheezing or crackles. ABDOMEN: Soft, nontender, nondistended, normoactive bowel sounds. No palpable organomegaly. MUSCULOSKELETAL: No joint swelling or deformity. EXTREMITIES: No cyanosis, clubbing, or pedal edema. Right hip surgical dressing is dry and intact NEUROLOGICAL: Gross neurological examination did not reveal any focal deficits. Diffusely weak SKIN: No rashes. Assessment: Mechanical fall with right hip pain noted to have right proximal hip fracture, and is postoperative day 3 right hip screw fixation Acute confusion, concerns for toxic/metabolic encephalopathy, possibly contributing to narcotic use as well as daily alcohol abuse as well as hospital-acquired delirium History of atrial fibrillation, currently rate controlled History of recent CVA History of hypertension Continued ongoing nicotine use Daily EtOH abuse, family reports 2-3 beers daily and a fireball shot, will continue CIWA protocol GI prophylaxis DVT prophylaxis Full code Plan: Patient is admitted under orthopedics with medicine on consult. Given patient's history of A-fib, recent CVA and hypertension with continued ongoing nicotine abuse and alcohol abuse, would deem the patient moderate risk for surgical intervention although somewhat noncompliant with medications and continued nicotine and alcohol. Risk versus benefits explained and patient is willing to proceed with surgical intervention as patient was independent and ambulatory prior to this Patient is having some increased confusion with concerns of hospital-acquired delirium, CT brain obtained showing a no acute intracranial hemorrhage or midline shift moderate diffuse age-related cerebral atrophy and probable chronic small vessel ischemic change noted. Incidental finding of soft tissue density consistent with cerumen in the right external auditory canal noted. Recommend Seroquel at night as needed and also frequent reorientation and family to sit with patient as much as possible. Recommend avoiding SENIOR STRATEGY MANAGER agents if possible and strongly recommend cautious use of narcotics. Patient continues with nicotine patch Continue to encourage incentive spirometer use at least 10 times every hour while awake. Patient needs constant reencouragement and reinforcement on proper use of incentive spirometer Home medications reviewed and resumed as appropriate Thank you kindly for this consultation. We will continue to follow with orthopedics during hospitalization. Family is now agreeable to rehab on discharge pending insurance authorization The impression and plan of care has been dictated by Grecia Linares , Nurse Practitioner as directed. Dr. Barrett MD I have performed a history and examination and MDM of this patient, discussed the same with the dictator, and agree with the dictator's assessment and plan as written ,documented as a scribe. Based on total visit time, I have performed more than 50% of the visit. Objective - Vital Signs Vital signs: Vital Signs Temp 97.9 F 02/13/25 07:34 Pulse 85 02/13/25 08:00 Resp 17 02/13/25 08:00 BP 178/96 02/13/25 07:34 Pulse Ox 94 L 02/13/25 07:34 FiO2 Intake & Output 02/12/25 02/13/25 02/13/25 18:59 06:59 18:59 Other: Voiding Method Indwelling Catheter Indwelling Catheter # Voids 4 1 - Labs CBC & Chem 7: 02/13/25 03:22 02/13/25 03:22 Labs: Abnormal Lab Results - Last 24 Hours (Table) 02/13/25 02/13/25 02/13/25 Range/Units 00:16 03:22 03:22 WBC 11.42 H (4.50-10.00) X 10*3/uL RBC 3.40 L (4.40-5.60) X 10*6/uL Hgb 10.7 L (13.0-17.0) g/dL Hct 32.2 L (39.6-50.0) % Immature Gran # 0.05 H (0.00-0.04) X 10*3/uL Neutrophils # 8.68 H (1.80-7.70) X 10*3/uL Monocytes # 1.01 H (0.20-1.00) X 10*3/uL Potassium 3.4 L (3.5-5.5) mmol/L Creatinine 0.4 L (0.6-1.5) mg/dL BUN/Creatinine Ratio 51.00 H (12.00-20.00) Ratio Urine Protein Trace H (Negative) Urine Ketones 2+ H (Negative)
[2025-02-14 07:40] VITALS: BP 110/71; PULSE 57; RESP 16
[2025-02-14 09:16] LABS: Blood Urea Nitrogen 29.2 mg/dL (9.0-27.0); Calcium 9.7 mg/dL (8.7-10.3); Carbon Dioxide 24.8 mmol/L (21.6-31.8); Chloride 107 mmol/L (96-109); Glucose 123 mg/dL (70-110); Potassium 3.4 mmol/L (3.5-5.5); Sodium 144 mmol/L (135-145)
[2025-02-14 09:39] LABS: Basophils # (A) 0.05 X 10*3/uL (0.00-0.10); Basophils % (A) 0.4 %; Eosinophils # (A) 0.12 X 10*3/uL (0.04-0.35); Eosinophils % (A) 0.9 %; HCT 33.8 % (39.6-50.0); HGB 11.4 g/dL (13.0-17.0); Lymphocytes # (A) 1.38 X 10*3/uL (0.90-5.00); Lymphocytes % (A) 10.1 %; MCH 31.7 pg (27.0-32.0); MCHC 33.7 g/dL (32.0-37.0); MCV 93.9 FL (80.0-97.0); Mean Platelet Volume 12.2 FL (9.5-12.2); Monocytes # (A) 1.21 X 10*3/uL (0.20-1.00); Monocytes % (A) 8.9 %; NRBC Per 100 WBC 0 X 10*3/uL (0.00-0.01); Neutrophils # (A) 10.78 X 10*3/uL (1.80-7.70); Neutrophils % (A) 79.1 %; Platelet Count 366 X 10*3/uL (140-440); RDW 13.2 % (11.5-14.5); WBC 13.62 X 10*3/uL (4.50-10.00)
[2025-02-14] MEDS ORDERED: Potassium Replacement Protocol 1 EACH MISC MISCELLANE PRN (09:45)
[2025-02-14] MEDS: POTASSIUM CHLORIDE ER 20 MEQ TAB.ER PO SCH (12:52)
[2025-02-14 14:50] VITALS: BMI 23.7
--- NOTE | 2025-02-15 10:36 | P.PN ---
Subjective Progress Note Date: 02/14/25 This is a 79-year-old male who presented to the emergency department from [facility] after a mechanical fall and noted to have a proximal right hip fracture. Patient follows with Dr. Hurley and sees the nurse practitioner Justina Vargas outpatient with past medical history of Atrial fibrillation, recent CVA, deafness, hypertension, anxiety with depression, continued ongoing nicotine dependence, daily drinking approximately 2-3 beers daily and fireball shots. Patient reports he fell and was unable to get up and his son lives with him and found him and called EMS for ER transport. Patient was at [facility] and sent here for further orthopedic evaluation. Patient is medically stable and given his age and comorbidities would deem him moderate risk although was ambulatory and independent prior to this and would proceed with surgical intervention. 02/09/2025 Patient is seen in follow-up today currently n.p.o. and is being taken to OR for surgical intervention on the proximal right hip fracture. Will await official report. Family is concerned with his mentation and there is a high concern for the fact that he drinks at least 3 beers daily although does not appear to be in active withdrawal. CIWA protocol is on board although recommend limiting the INSPECTOR LINE agents as patient is having some confusion. Will add Seroquel at night and will obtain CT of the brain as patient did fall that was unwitnessed and reports he did not hit his head although unsure if this is true as patient is a poor historian. Family is concerned. Encouraged family to stay with patient and frequent reorientation. Recommend limiting narcotics and INSPECTOR LINE agents. 02/10/2025 Patient is evaluated in follow-up in the medical floor. Patient is currently postoperative day #1 right hip screw fixation. Speech remains garbled which he has been having since his prior stroke however more pronounced per family. Labs today reveal a white blood cell count of 13.82, hemoglobin 10.2, sodium 137, potassium 3.6, BUN of 16.9 creatinine of 0.5. Today at the bedside patient reports that he is not currently having any pain and would recommend to limit narcotics and INSPECTOR LINE agents. Family is still undecided about rehab. 02/11/2025 Patient is evaluated in follow-up on the medical floor. He is sitting up in the chair he is actively acute smoking a cigarette and he remains confused. He was offered a nicotine patch. He did require a dose of Haldol last night secondary to agitation and restlessness. He is postoperative day #2 right hip screw fixation. 02/12/2025 Patient noted today in follow-up in the medical floor he is sitting up in the chair. Patient is postoperative day #3 right hip screw fixation. He appears less agitated today. He continues with a nicotine patch. He did require a dose of Haldol throughout the evening. Patient had a low-grade temp overnight of 100.1. He does need encouragement to use the incentive spirometer although due to his altered mentation he is unable to use it. Chest x-ray reveals cardiomegaly and central pulmonary vascular congestion with minimal bilateral lateral lower lobe subsegmental atelectasis. Patient is currently not receiving IV fluids. Labs today reveal a sodium level of 136 potassium of 3.5 BUN of 17 creatinine 0.3. White cell count is improving and down to 12.1. He is saturating well 97% on room air oxygen. 02/13/2025 Patient is seen in follow-up status post right hip fixation. Patient is currently sitting up in the chair and has been encouraged to use incentive spirometer. Patient to continue on Seroquel at night and recommend to continue. Continue with frequent reorientation and working on going to ECF. Patient is quite weak and family initially discussing going home with home care although they would like him to go to rehab now on discharge for continued strength and mobility. 02/14/2025 Patient is seen in follow-up today is awaiting insurance authorization to go to ECF as patient is significantly weak and will require continued PT/OT therapy. Family is agreeable and patient will be going to ECF today as patient has received insurance authorization. Patient is afebrile with no reports of chest pain or shortness of breath and has been tolerating diet. Patient does not appear to be actively withdrawing although is impulsive at times and will continue with low-dose Seroquel at night with concerns of hospital-acquired delirium. Patient is medically stable once insurance authorization is obtained for discharge to ECF. Discussed with family about following up with primary care provider on discharge. Patient is somewhat noncompliant with medications outpatient. Review of systems: Constitutional: No reports of fatigue, fever, or chills Cardiovascular: No reports of chest pain or palpitations Respiratory: No reports of shortness of breath or cough GI: No reports of nausea, vomiting, or diarrhea : No reports of dysuria or retention Neurovascular: reports of generalized weakness and right hip pain, but feels it is improved All medications have been reviewed The rest of the 14-point review of systems is negative. PHYSICAL EXAMINATION: GENERAL: The patient is alert and oriented x2, more awake today, currently sitting up in the chair. Well developed, well nourished. Elderly appearing HEENT: Pupils are round and equally reacting to light. EOMI. No scleral icterus. No conjunctival pallor. Normocephalic, atraumatic. No pharyngeal erythema. No thyromegaly. CARDIOVASCULAR: S1 and S2 muffled PULMONARY: Chest is clear to auscultation, no wheezing or crackles. ABDOMEN: Soft, nontender, nondistended, normoactive bowel sounds. No palpable organomegaly. MUSCULOSKELETAL: No joint swelling or deformity. EXTREMITIES: No cyanosis, clubbing, or pedal edema. Right hip surgical dressing is dry and intact NEUROLOGICAL: Gross neurological examination did not reveal any focal deficits. Diffusely weak SKIN: No rashes. Assessment: Mechanical fall with right hip pain noted to have right proximal hip fracture, and is postoperative day 3 right hip screw fixation Acute confusion, concerns for toxic/metabolic encephalopathy, possibly contributing to narcotic use as well as daily alcohol abuse as well as hospital- acquired delirium History of atrial fibrillation, currently rate controlled History of recent CVA History of hypertension Continued ongoing nicotine use Daily EtOH abuse, family reports 2-3 beers daily and a fireball shot, will continue CIWA protocol GI prophylaxis DVT prophylaxis Full code Plan: Patient is admitted under orthopedics with medicine on consult. Given patient's history of A-fib, recent CVA and hypertension with continued ongoing nicotine abuse and alcohol abuse, would deem the patient moderate risk for surgical intervention although somewhat noncompliant with medications and continued nicotine and alcohol. Risk versus benefits explained and patient is willing to proceed with surgical intervention as patient was independent and ambulatory prior to this Patient is having some increased confusion with concerns of hospital-acquired delirium, CT brain obtained showing a no acute intracranial hemorrhage or midline shift moderate diffuse age-related cerebral atrophy and probable chronic small vessel ischemic change noted. Incidental finding of soft tissue density consistent with cerumen in the right external auditory canal noted. Recommend Seroquel at night as needed and also frequent reorientation and family to sit with patient as much as possible. Recommend avoiding INSPECTOR LINE agents if possible and strongly recommend cautious use of narcotics. Patient continues with nicotine patch Continue to encourage incentive spirometer use at least 10 times every hour while awake. Patient needs constant reencouragement and reinforcement on proper use of incentive spirometer Home medications reviewed and resumed as appropriate Patient is medically stable and has been cleared by orthopedics Thank you kindly for this consultation. We will continue to follow with orthopedics during hospitalization. Family is now agreeable to rehab on discharge and has received insurance authorization and will be going to [facility] today The impression and plan of care has been dictated by Grecia Linares , Nurse Practitioner as directed. Dr. Barrett MD I have performed a history and examination and MDM of this patient, discussed the same with the dictator, and agree with the dictator's assessment and plan as written ,documented as a scribe. Based on total visit time, I have performed more than 50% of the visit. Objective - Vital Signs Vital signs: Vital Signs Temp 98.4 F 02/14/25 01:00 Pulse 57 L 02/14/25 07:24 Resp 16 02/14/25 07:24 BP 110/71 02/14/25 07:24 Pulse Ox 98 02/14/25 07:24 FiO2 Intake & Output 02/13/25 02/14/25 02/14/25 18:59 06:59 18:59 Intake Total 120 Balance 120 Intake: Oral 120 Other: Voiding Method Indwelling Catheter Diaper # Voids 3 3 - Labs CBC & Chem 7: 02/14/25 06:00 02/14/25 06:00 Labs: Abnormal Lab Results - Last 24 Hours (Table) 02/14/25 02/14/25 Range/Units 06:00 06:00 WBC 13.62 H (4.50-10.00) X 10*3/uL RBC 3.60 L (4.40-5.60) X 10*6/uL Hgb 11.4 L (13.0-17.0) g/dL Hct 33.8 L (39.6-50.0) % Immature Gran # 0.08 H (0.00-0.04) X 10*3/uL Neutrophils # 10.78 H (1.80-7.70) X 10*3/uL Monocytes # 1.21 H (0.20-1.00) X 10*3/uL Potassium 3.4 L (3.5-5.5) mmol/L Anion Gap 12.20 H (4.00-12.00) mmol/L BUN 29.2 H (9.0-27.0) mg/dL Creatinine 0.5 L (0.6-1.5) mg/dL BUN/Creatinine Ratio 58.40 H (12.00-20.00) Ratio Glucose 123 H (70-110) mg/dL
== END 2025-02-14 14:50 | DRG 480 ==
LOC: EC 09:31 → 4SSUR 11:10
PROVIDERS: ADMIT Orthopaedic Surgery Sports Medicine; ATTEND Orthopaedic Surgery Sports Medicine
PROC: 0QS636Z Reposition Right Upper Femur with Intramedullary Internal Fixation Device, Percutaneous Approach (ICD-10-PCS; principal; 2025-02-09 09:45)
DX: S72.141A Displaced intertrochanteric fracture of right femur, initial encounter for closed fracture (principal); G92.8 Other toxic encephalopathy; F10.10 Alcohol abuse, uncomplicated; I10 Essential (primary) hypertension; F32.A Depression, unspecified; I48.91 Unspecified atrial fibrillation; F41.9 Anxiety disorder, unspecified; F17.210 Nicotine dependence, cigarettes, uncomplicated; H91.92 Unspecified hearing loss, left ear; T40.605A Adverse effect of unspecified narcotics, initial encounter; Z91.148 Patient's other noncompliance with medication regimen for other reason; Z79.01 Long term (current) use of anticoagulants; Z79.82 Long term (current) use of aspirin; Z79.899 Other long term (current) drug therapy; Z86.73 Personal history of transient ischemic attack (TIA), and cerebral infarction without residual deficits; W01.0XXA Fall on same level from slipping, tripping and stumbling without subsequent striking against object, initial encounter; Y92.013 Bedroom of single-family (private) house as the place of occurrence of the external cause
CPT/HCPCS: 70450; 71045; 71046; 73502; 80048; 80053; 81003; 83735; 83880; 85025; 87636; 93005; 96361; 96374; 96376; 99285